=== PATIENT | male | born 1965 | race Hispanic/Latino ===

== ENCOUNTER 2017-10-15 13:30 | Emergency (ER) | payer OTHER, SELFPAY ==
[2017-10-15 13:58] LABS: #Basophils 0.1 thou/uL (0.0-0.2); #Eosinphils 0.3 thou/uL (0.0-0.7); #Lymphocytes 2.1 thou/uL (1.20-3.40); #Monocytes 0.6 thou/uL (0.11-0.59); #Neutrophils 9.5 thou/uL (1.40-6.50); %Basophils 0.4 % (0.0-1.0); %Eosinophils 2.6 % (0.0-10.0); %Lymphocytes 16.5 % (21.0-51.0); %Monocytes 4.9 % (0.0-10.0); %Neutrophils 75.5 % (42.0-75.0); Hemoglobin 17.5 g/dL (14.0-18.0); Mean Corpuscular HGB CONC 34.4 g/dL (32.0-36.0); Mean Corpuscular Hemoglobin 32.1 pg (27.0-31.0); Mean Corpuscular Volume 93.3 fl (80.0-94.0); Mean Platelet Volume 7.6 fL (7.4-10.4); Platelet Count 202 thou/uL (130-400); RBC Distribution Width 11.7 % (11.5-14.5); Red Blood Cell (RBC) Count 5.44 mill/uL (4.70-6.10); White Blood Cell (WBC) Count 12.5 thou/uL (4.8-10.8)
[2017-10-15 14:35] LABS: ALT (SGPT) 30 U/L (8-55); AST (SGOT) 39 U/L (5-34); Albumin 4.3 g/dL (3.5-5.0); Alkaline Phosphatase 127 U/L (40-150); Anion Gap 15 mmol/L (10-20); BUN (Urea Nitrogen) 15 mg/dL (8.4-25.7); CK (CPK) 64 U/L (30-200); Calc. Creatinine Clearance 0 mL/min (70-130); Calcium 9.9 mg/dL (7.8-10.44); Carbon Dioxide 26 mmol/L (22-29); Chloride 103 mmol/L (98-107); Estimated GFR-MDRD 65; Globulin 4.3 g/dL (2.4-3.5); Glucose 236 mg/dL (70-105); Potassium 3.9 mmol/L (3.5-5.1); Protein, Total 8.6 g/dL (6.0-8.3); Sodium 140 mmol/L (136-145)
[2017-10-15 14:39] LABS: Troponin I 0.011 ng/mL (< 0.028)
[2017-10-15] MEDS ORDERED: Nitroglycerin 0.4 MG TAB (25 Tab Bottle) ONE (14:40)
[2017-10-15 14:59] LABS: Magnesium 2.1 mg/dL (1.6-2.6)
--- NOTE | 2017-10-15 16:15 | RAD ---
SINGLE VIEW OF THE CHEST: 10/15/17 COMPARISON: 11/08/16 HISTORY: Epigastric pain and chest pain. FINDINGS: Single view of the chest shows a normal sized cardiomediastinal silhouette. There is no evidence of c onsolidation, mass, or pleural effusion. Degenerative changes are seen in the spine. IMPRESSION: No evidence of acute cardiopulmonary disease. POS: [facility]
[2017-10-15] MEDS ORDERED: Mag-Al 1200 mg/1200 mg/30 ML UDCUP ONE (16:29)
[2017-10-15] MEDS ORDERED: Lidocaine Viscous Sol 2% 15 ml UD Cup ONE (16:29)
--- NOTE | 2017-10-15 17:15 | ULT ---
RIGHT UPPER QUADRANT ULTRASOUND: History: Epigastric and right sided chest and arm pain. Abdominal pain since 8 this morning. Technique: Multiplanar grayscale and color doppler images were obtained in a right upper quadrant abd ominal ultrasound. FINDINGS: The liver demonstrates increased echogenicity without focal lesions or intrahepatic ductal dilatation . The gallbladder is normal without stones, sludge, gallbladder wall thickening, or pericholecystic f luid. The common bile duct is normal measuring 3 mm. The visualized portions of the pancreas are unremarkable. The right kidney is normal in echogenicity without hydronephrosis or calculus and measures 10.8 cm in length. IMPRESSION: Fatty liver. POS: [facility]
== END 2017-10-15 17:18 | disposition home or self-care (01) ==
LOC: ERS 13:30
DX: K21.9 Gastro-esophageal reflux disease without esophagitis (principal); I25.2 Old myocardial infarction; E11.9 Type 2 diabetes mellitus without complications; F17.210 Nicotine dependence, cigarettes, uncomplicated; I10 Essential (primary) hypertension
CPT/HCPCS: 36415; 71045; 76705; 80053; 82553; 83690; 83735; 84484; 85025; 93005

== ENCOUNTER 2018-12-23 07:31 | Emergency (ER) | payer SELFPAY ==
[2018-12-23] MEDS ORDERED: HYDROcodone/Acetaminophen 5/325 mg Tablet ONE (09:16)
[2018-12-23] MEDS ORDERED: Dexamethasone 4 mg/ml Vial ONE (09:17)
[2018-12-23] MEDS ORDERED: Ketorolac Tromethamine 30 MG/ML VIAL ONE (09:17)
== END 2018-12-23 09:35 | disposition home or self-care (01) ==
LOC: ERS 07:31
DX: M54.16 Radiculopathy, lumbar region (principal); I25.2 Old myocardial infarction; F17.210 Nicotine dependence, cigarettes, uncomplicated
CPT/HCPCS: 96372; 99283; J1100; J1885

== ENCOUNTER 2019-01-17 21:29 | Observation (INO) | payer SELFPAY ==
[2019-01-17] MEDS ORDERED: Labetalol HCl 100 MG/20 ML VIAL ONE (21:56)
[2019-01-17 22:04] LABS: #Basophils 0.1 thou/uL (0.0-0.2); #Eosinphils 0.6 thou/uL (0.0-0.7); #Monocytes 0.6 thou/uL (0.11-0.59); #Neutrophils 5.3 thou/uL (1.40-6.50); %Basophils 1.1 % (0.0-1.0); %Eosinophils 5.9 % (0.0-10.0); %Lymphocytes 31.3 % (21.0-51.0); %Neutrophils 55.6 % (42.0-75.0); Hemoglobin 16.6 g/dL (14.0-18.0); Mean Corpuscular HGB CONC 33.6 g/dL (32.0-36.0); Mean Corpuscular Hemoglobin 31.4 pg (27.0-31.0); Mean Corpuscular Volume 93.3 fL (78.0-98.0); Mean Platelet Volume 7.8 fL (7.4-10.4); Platelet Count 190 thou/uL (130-400); RBC Distribution Width 11.5 % (11.5-14.5); Red Blood Cell (RBC) Count 5.28 mill/uL (4.70-6.10); White Blood Cell (WBC) Count 9.5 thou/uL (4.8-10.8)
--- NOTE | 2019-01-17 22:15 | CT ---
CT Brain WO Con History: Dizziness and blurred vision Comparison: CT 2016 Findings: No acute hemorrhage or infarct. No midline shift or mass effect. Ventricular size and extra -axial CSF spaces are normal. Mild periventricular microangiopathic changes. Paranasal sinuses and mastoids are clear. Impression: No acute intracranial abnormality.
--- NOTE | 2019-01-17 22:16 | RAD ---
XR Chest 1 View Portable History: Dizziness and blurred vision Comparison: Radiograph 2018 Findings: Lungs are clear. No pneumothorax. No effusion. No acute osseous abnormality. Impression: No acute intrathoracic abnormality.
[2019-01-17] MEDS ORDERED: Aspirin Chewable 81 MG TAB ONE (22:22)
[2019-01-17 22:24] LABS: ALT (SGPT) 33 U/L (8-55); AST (SGOT) 30 U/L (5-34); Albumin 4.2 g/dL (3.5-5.0); Alkaline Phosphatase 108 U/L (40-150); Anion Gap 13 mmol/L (10-20); BUN (Urea Nitrogen) 15 mg/dL (8.4-25.7); Bilirubin, Total 0.8 mg/dL (0.2-1.2); Calc. Creatinine Clearance 0 mL/min (70-130); Calcium 9.4 mg/dL (7.8-10.44); Carbon Dioxide 24 mmol/L (22-29); Chloride 102 mmol/L (98-107); Estimated GFR-MDRD 76; Globulin 3.6 g/dL (2.4-3.5); Glucose 148 mg/dL (70-105); Potassium 3.3 mmol/L (3.5-5.1); Protein, Total 7.8 g/dL (6.0-8.3); Sodium 136 mmol/L (136-145)
[2019-01-17] MEDS ORDERED: Acetaminophen 325 MG TAB PO PRN (23:51)
[2019-01-17] MEDS ORDERED: Sodium Chloride 0.9% 1,000 ML IV SCH (23:51)
[2019-01-17] MEDS ORDERED: Ondansetron ODT 4 MG TAB SL PRN (23:51)
[2019-01-17] MEDS ORDERED: Ondansetron PF 4 MG/2 ML Vial IVP PRN (23:51)
[2019-01-18 05:05] LABS: Troponin I 0.035 ng/mL (< 0.028)
[2019-01-18] MEDS ORDERED: Sodium Chloride 0.9% 1,000 ML IV SCH (08:43)
[2019-01-18] MEDS ORDERED: Aspirin Chewable 81 MG TAB PO SCH (09:00)
[2019-01-18] MEDS ORDERED: Amlodipine 5 MG TAB PO SCH ×2 (09:00→18:00)
[2019-01-18] MEDS ORDERED: Dextrose 5% in Water 1,000 ML IV PRN (09:14)
[2019-01-18] MEDS ORDERED: HumaLOG 300 UNITS/3 ML VIAL SC PRN (09:14)
[2019-01-18] MEDS ORDERED: Dextrose 50% Abboject 50 ML SYRINGE SLOW IVP PRN (09:14)
[2019-01-18 09:18] LABS: #Eosinphils 0.5 thou/uL (0.0-0.7); #Lymphocytes 2.2 thou/uL (1.20-3.40); #Monocytes 0.6 thou/uL (0.11-0.59); #Neutrophils 4.7 thou/uL (1.40-6.50); %Basophils 0.3 % (0.0-1.0); %Eosinophils 6.6 % (0.0-10.0); %Lymphocytes 27.8 % (21.0-51.0); %Monocytes 6.9 % (0.0-10.0); %Neutrophils 58.4 % (42.0-75.0); Mean Corpuscular HGB CONC 34.2 g/dL (32.0-36.0); Mean Corpuscular Hemoglobin 32.1 pg (27.0-31.0); Mean Platelet Volume 8.1 fL (7.4-10.4); Platelet Count 172 thou/uL (130-400); RBC Distribution Width 11.6 % (11.5-14.5); Red Blood Cell (RBC) Count 4.98 mill/uL (4.70-6.10); White Blood Cell (WBC) Count 8.1 thou/uL (4.8-10.8)
[2019-01-18 09:34] LABS: ALT (SGPT) 30 U/L (8-55); AST (SGOT) 27 U/L (5-34); Albumin 3.8 g/dL (3.5-5.0); Alcohol Less than 10 mg/dL (Less than 10); Alkaline Phosphatase 96 U/L (40-150); Anion Gap 13 mmol/L (10-20); BUN (Urea Nitrogen) 16 mg/dL (8.4-25.7); Bilirubin, Total 1.3 mg/dL (0.2-1.2); Calc. Creatinine Clearance 92 mL/min (70-130); Calcium 9.2 mg/dL (7.8-10.44); Carbon Dioxide 26 mmol/L (22-29); Cardiac Risk 3.1 (Less than 4.5); Chloride 103 mmol/L (98-107); Cholesterol 145 mg/dl (< 200 Desired); Estimated GFR-MDRD Greater than 90; Globulin 3.5 g/dL (2.4-3.5); Glucose 170 mg/dL (70-105); HDL Cholesterol 47 mg/dL (>60 Neg Risk); LDL Cholesterol, Calculated 70 mg/dL; Magnesium 2.2 mg/dL (1.6-2.6); Potassium 3.6 mmol/L (3.5-5.1); Protein, Total 7.3 g/dL (6.0-8.3); Sodium 138 mmol/L (136-145); Triglycerides 138 mg/dL (Less than 150)
[2019-01-18] MEDS ORDERED: Ondansetron ODT 4 MG TAB PO PRN (09:34)
[2019-01-18] MEDS ORDERED: Acetaminophen 650 MG Suppository PR PRN (09:34)
[2019-01-18] MEDS ORDERED: Ondansetron PF 4 MG/2 ML Vial IVP PRN (09:34)
[2019-01-18] MEDS ORDERED: Senokot S 8.6-50 MG TAB PO PRN (09:34)
[2019-01-18] MEDS ORDERED: Acetaminophen 325 MG TAB PO PRN (09:34)
[2019-01-18 09:56] LABS: CKMB 1.4 ng/mL (0-6.6)
[2019-01-18] MEDS ORDERED: ADENOSINE 60 MG/20 ML VIAL ONE (13:54)
--- NOTE | 2019-01-18 15:11 | ULT ---
BILATERAL CAROTID DUPLEX ULTRASOUND WITH SPECTRAL ANALYSIS AND COLOR FLOW EVALUATION: HISTORY: Left upper extremity numbness and blurred vision. FINDINGS: Guan scale, color flow, Doppler evaluation, and spectral analysis of the bilateral carotid arteries i s performed with 2D imaging. There is mild calcified atherosclerotic plaque seen in the region of th e right carotid bulb. There is less than 50% maximal stenosis in the bilateral internal carotid arteries according to the p eak systolic velocities and the ICA/CCA ratios. Peak systolic velocity in the right ICA is 65 cm/s w ith an ICA/CCA ratio of 0.96. Peak systolic velocity in the left ICA is 46.5 cm/s with an ICA/CCA ra heather of 0.61. Antegrade flow is demonstrated in the vertebral arteries bilaterally. IMPRESSION: No hemodynamically significant stenosis in the bilateral internal carotid arteries. POS: [facility]
--- NOTE | 2019-01-18 15:17 | NM ---
EXAM: Nuclear medicine cardiac perfusion examination with ejection fraction HISTORY: Chest pain TECHNIQUE: Rest images: 9.0 mCi technetium 99m sestamibi Stress images: 27.5 mCi of technetium 9M sestamibi; Adenosine COMPARISON: None FINDINGS: Tomographic images: No fixed or reversible perfusion defects. Gated images: Normal wall motion and ejection fraction of 57%. EDV: 136 mL LHR: 0.3 TID: 1.16 IMPRESSION: No evidence of ischemia
[2019-01-18] MEDS ORDERED: hydrALAZINE 20 MG/ML VIAL SLOW IVP PRN (16:33)
[2019-01-18 16:41] LABS: Amphetamine Not Detected (NotDetected); Benzodiazepine Screen Not Detected (NotDetected); Cocaine Metabolite Screen Not Detected (NotDetected); Medtox Reader # READER 4; Methadone Not Detected (NotDetected); Methamphetamine Not Detected (NotDetected); Opiate Screen Not Detected (NotDetected); Phencyclidine (PCP) Not Detected (NotDetected); THC/Cannabinoid Screen Not Detected (NotDetected); Tricyclic Screen Not Detected (NotDetected)
[2019-01-18 16:42] LABS: Barbiturates Screen Not Detected (NotDetected); Medtox Control Line Valid? VALID (VALID); Oxycodone Screen Not Detected (NotDetected)
[2019-01-18] MEDS: HumaLOG 300 UNITS/3 ML VIAL SC PRN (17:04)
[2019-01-18] MEDS ORDERED: Labetalol HCl 100 MG/20 ML VIAL SLOW IVP PRN (17:57)
[2019-01-18] MEDS ORDERED: Famotidine/PF 20 mg/2ml Vial SLOW IVP SCH (21:00)
[2019-01-18] MEDS: Metoprolol Tartrate 25 MG TAB PO SCH (21:23)
[2019-01-18] MEDS ORDERED: Famotidine 20 MG TAB PO SCH (21:30)
--- NOTE | 2019-01-18 22:19 | PDOC.EVN ---
Event Note - Event Note Event Note: Dictated H&P 01/18/2019 at 9am- #[id number]
[2019-01-19 05:20] LABS: #Basophils 0.1 thou/uL (0.0-0.2); #Eosinphils 0.5 thou/uL (0.0-0.7); #Lymphocytes 2.7 thou/uL (1.20-3.40); #Monocytes 0.7 thou/uL (0.11-0.59); #Neutrophils 4.9 thou/uL (1.40-6.50); %Basophils 0.6 % (0.0-1.0); %Eosinophils 5.2 % (0.0-10.0); %Lymphocytes 30.8 % (21.0-51.0); %Monocytes 7.7 % (0.0-10.0); %Neutrophils 55.7 % (42.0-75.0); Hemoglobin 15.6 g/dL (14.0-18.0); Mean Corpuscular HGB CONC 33.4 g/dL (32.0-36.0); Mean Corpuscular Hemoglobin 31.6 pg (27.0-31.0); Mean Corpuscular Volume 94.7 fL (78.0-98.0); Mean Platelet Volume 8.5 fL (7.4-10.4); Platelet Count 181 thou/uL (130-400); RBC Distribution Width 11.6 % (11.5-14.5); Red Blood Cell (RBC) Count 4.94 mill/uL (4.70-6.10); White Blood Cell (WBC) Count 8.8 thou/uL (4.8-10.8)
[2019-01-19 05:37] LABS: Anion Gap 11 mmol/L (10-20); BUN (Urea Nitrogen) 18 mg/dL (8.4-25.7); Calc. Creatinine Clearance 87 mL/min (70-130); Calcium 9.1 mg/dL (7.8-10.44); Carbon Dioxide 26 mmol/L (22-29); Chloride 103 mmol/L (98-107); Estimated GFR-MDRD 84; Glucose 163 mg/dL (70-105); Potassium 3.5 mmol/L (3.5-5.1); Sodium 136 mmol/L (136-145)
[2019-01-19] MEDS: HumaLOG 300 UNITS/3 ML VIAL SC PRN (06:03)
--- NOTE | 2019-01-19 07:50 | HP ---
PRIMARY CARE PHYSICIAN: None. CHIEF COMPLAINT: Weakness and lightheaded. HISTORY OF PRESENT ILLNESS: Mr. Shields is a 53-year-old man with a history of hypertension and noncompliance with medications, who presents due to complaints of feeling generally unwell yesterday evening with weakness in both legs, lightheadedness, and blurred vision. The patient states upon arriving to the emergency department, he experienced a brief episode of central chest pain lasting a couple of seconds, which he rates a 4/10 in severity, described as a sharp pain. He reports having a current episode of similar pain about 1 hour later. He states he currently feels pressure in his head, but when asked about the headaches, he says he does not experience headaches. The patient was a very poor historian, giving conflicting information, often looking to his family member before answering questions, and states he is forgetful and has poor memory. He states his main concern is the chest pain that occurred while he was in the emergency department. He denies experiencing pain like that in the past. Denies any associated shortness of breath. The patient states he ran out of his blood pressure medications approximately 1 month ago. He was unsure when and states it was prescribed by a physician he saw while admitted to the hospital. He does not recall the name of the medication and states he has never followed up with a primary care physician. He does not check his blood pressure at home and is unsure what his blood pressure normally is. He had frequent issues with blurred vision [place]. He then stated that he had double vision at the moment and when asked when it started, he stated that it has been going on for quite some time. It does sound like it was intermittent, but the patient unable to stay who often it occurs, if multiple times daily or several times a week or exactly comply often. He denies experiencing any blurred vision. Again, denies any headache, but continues to describe pressure in his head, which he rates as a 2/10 in severity. He is unable to state, if this is daily, though initially, he stated it was constant. He denies taking anything for it because he states it is not "pain." He denies having any shortness of breath. He works [employer] and apparently started working there a week before. Denies having any recent cough or hemoptysis. No fevers, chills, or sweats. Denies any abdominal pain or cramping. No urinary complaints and no bowel changes. He admits to smoking when he drinks. When asked how often he drinks, he stated rarely. However, upon further questioning, when asked when the last time he drank was, he stated yesterday and admitted to drinking on Saturday and as well. His daughter then confirmed he does tend to drink 3 to 4 days a week. This ranges anywhere between two 12-ounce cans of beer to six-pack. The patient unable to state exactly how much he drinks. He did confirm once again that he does smoke when he drinks, but unable to state the quantity. He denied any drug use. In the emergency department, he reported having a history of diabetes and VT in the past; however, has denied both of these today. He was seen in the emergency department and noted to have a blood pressure of 194/100. He was given a dose of labetalol 20 mg. Also, given aspirin 324 mg. He underwent a CT of the head due to the blurred vision, which was negative. He had a chest x-ray that was unremarkable. An EKG was done showing nonspecific ST changes with a heart rate of 71. No T-wave abnormalities. He had findings notable for left ventricular hypertrophy. The patient later reported having weakness and altered sensation in his left arm, which has been going on for the last year and stable. Denies having history of CVA or TIA. He states he never sought medical attention when it started. Denies any associated back pain. PAST MEDICAL HISTORY: 1. Hypertension. 2. Arthritis. 3. Per previous documentation last night and couple of years ago, he was diagnosed with diabetes mellitus type 2 in his early 40s. The patient does not take any medications for this. 4. Dyslipidemia. PAST SURGICAL HISTORY: Unremarkable. SOCIAL HISTORY: He drinks alcohol daily anywhere from two 12-ounce cans of beer to six pack per day, at least three days a week, but did drink more heavily in the past. Denies any illicit drug use, but per prior documentation, has a history of cocaine abuse in the past. The patient reports smoking when he drinks, but unable to state the quantity. ALLERGIES: NO KNOWN DRUG ALLERGIES. CURRENT MEDICATIONS: 1. [place]. 2. Prednisone. PHYSICAL EXAMINATION: GENERAL: The patient appears overweight, well developed, well nourished, in no acute distress. VITAL SIGNS: Temperature 97.6, pulse 60, respirations 14, O2 saturation 97% on room air, and blood pressure 180/101. HEENT: Normocephalic and atraumatic. Pupils are equal, round, and reactive to light. Extraocular movements intact. Visual cho intact. Oropharynx is clear. NECK: Supple. Full range of motion. LUNGS: Clear to auscultation bilaterally without wheezes, rales, rhonchi. CARDIAC: Regular rate and rhythm. ABDOMEN: Soft, obese, nontender, nondistended. Normoactive bowel sounds present. EXTREMITIES: No lower leg swelling or edema. NEUROLOGIC: Alert and oriented x3. No neuro deficits. Reports reduced sensation in the left upper extremity; however, has good strength bilaterally. SKIN: Normal warm and dry. INVESTIGATIONS: As mentioned above in HPI. IMPRESSION AND PLAN: Mr. Shields is a 53-year-old gentleman who has been referred for management of the followin. Acute coronary syndrome rule out. He has had no recurrent chest pain. Troponins have been trended. The first two were negative and the second is indeterminate at 0.035. I will add fourth troponins. Stress test requested. The patient with changes of LVH on EKG. We will obtain an echo as he has never had one. 2. Light headedness. The patient is status post CT of the brain that was negative. He has mild left upper extremity deficits, which he describes as weakness and altered sensation. Good strength bilaterally on exam with very minimal difference between the left and right arm. The patient never sought medical attention for this. Reports having issues with his memory. Not a very reliable historian. We will obtain carotid Dopplers. We will discuss further recommendations with . I presume given the fact that he has had long-standing problems including his vision, he would not meet any criteria for further inpatient workup as he does not have any acute symptoms. 3. Uncontrolled hypertension. The patient with history of noncompliance. Lost his medications and never established care with a primary care physician. We will start him on 5 mg of amlodipine. 4. Diabetes mellitus. The patient denies being diagnosed with diabetes in the past, but that has been documented on prior notes including the ER note last night. We will initiate sliding scale and initiate glucose monitoring. 5. Deep venous thrombosis prophylaxis. Mechanical SCDs. The patient is ambulatory. 6. Gastrointestinal prophylaxis. CODE STATUS: Full. His surrogate decision maker is , Char Shields. The patient's case was discussed with attending for further recommendations. Job ID: [id number]
[2019-01-19] MEDS: Metoprolol Tartrate 25 MG TAB PO SCH (08:54)
[2019-01-19] MEDS ORDERED: Amlodipine 5 MG TAB PO SCH (09:00)
[2019-01-19] MEDS ORDERED: Famotidine 20 MG TAB PO SCH (09:00)
[2019-01-19 12:13] VITALS: BP 150/81; TEMP 98.6
--- NOTE | 2019-01-19 14:44 | DIS ---
DATE OF ADMISSION: 01/17/2019 DATE OF DISCHARGE: 01/19/2019 [facility] Call admission for [place]. DISPOSITION: Discharged home. FINAL DIAGNOSES: 1. Hypertensive urgency. 2. Chest pain. 3. Diabetes mellitus type 2, uncontrolled. 4. Noncompliance with medical regimen. 5. Ethanol abuse. DISCHARGE MEDICATIONS: 1. Metoprolol 12.5 mg p.o. b.i.d. 2. Amlodipine 5 mg a day. ALLERGIES: NONE. DIET: Diabetic diet. CODE STATUS: Full. PENDING AT TIME OF DISCHARGE: Hemoglobin A1c is pending. HOSPITAL COURSE: The patient admitted with dizziness, chest pain. He was found to have significantly elevated blood pressure, treated initially with IV medicines, transitioned to p.o. medicines. His blood pressure is still ranging in the 148/81 to 162/82 range, pulse is 60. He has no chest pain, shortness of breath, or dizziness at the present time. He had a brain CT which revealed no acute intracranial abnormality. Chest x-ray demonstrated no cardiomegaly, CHF, or infiltrate. He had a nuclear medicine stress test that showed no reversibility. He had an echocardiogram, showed normal EF. A carotid Doppler study did show stenosis of his internal carotid arteries. His laboratory; metabolic profile is unremarkable except for a blood sugar of 148. Cardiac enzymes 0.01, 0.02, 0.03. BNP 68.8. CBC normal. Currently, he is doing well. Cardiorespiratory exam is normal. We were attempting to get him a PCP. He needs to be seen in 1 week for followup of his blood pressure and to start treatment for his diabetes. His blood sugars are currently running 100 to 200. Hemoglobin A1c is pending and that will make a difference on how he is treated, but he has been told to stay on a diabetic diet. Job ID: [id number]
--- NOTE | 2019-01-24 12:46 | EKG ---
Test Reason : CP Blood Pressure : / mmHG Vent. Rate : 071 BPM Atrial Rate : 071 BPM P-R Int : 166 ms QRS Dur : 090 ms QT Int : 424 ms P-R-T Axes : 047 008 066 degrees QTc Int : 460 ms Normal sinus rhythm Voltage criteria for left ventricular hypertrophy Nonspecific ST abnormality Abnormal ECG Confirmed by KADEEM SALCEDO, NIRANJAN ([id number]), development editor PAMELA WU ([id number]) on 01/24/2019 12:45:59 PM Referred By: Confirmed By:NIRANJAN QUAN MD
== END 2019-01-19 13:31 | disposition home or self-care (01) ==
LOC: ERS 21:29 → 2SW 22:53
PROVIDERS: ADMIT Hospitalist; ATTEND Hospitalist
DX: I16.0 Hypertensive urgency (principal); R07.89 Other chest pain; E11.9 Type 2 diabetes mellitus without complications; F10.10 Alcohol abuse, uncomplicated; M19.90 Unspecified osteoarthritis, unspecified site; E78.5 Hyperlipidemia, unspecified; I25.2 Old myocardial infarction; F14.10 Cocaine abuse, uncomplicated; F12.10 Cannabis abuse, uncomplicated; F17.210 Nicotine dependence, cigarettes, uncomplicated; Z91.19 Patient's noncompliance with other medical treatment and regimen
CPT/HCPCS: 36415; 36416; 70450; 71045; 78452; 80048; 80053; 80061; 80306; 80307; 82533; 82553; 83735; 83880; 84443; 84484; 85025; 93005; 93017; 93306; 93880; 94760; 96374; 96375; 96376; A9500; G0378; J0153; J0360; S0028

== ENCOUNTER 2019-03-30 19:25 | Observation (INO) | payer SELFPAY ==
[2019-03-30] MEDS ORDERED: Nitroglycerin 0.4 MG TAB 1 EACH ONE (19:55)
[2019-03-30] MEDS ORDERED: Nitroglycerin 2% Ointment 1 INCH/1 GM Packet ONE (19:55)
[2019-03-30] MEDS ORDERED: Aspirin Chewable 81 MG TAB ONE (19:55)
[2019-03-30 20:05] LABS: #Eosinphils 0.7 thou/uL (0.0-0.7); #Lymphocytes 2.7 thou/uL (1.20-3.40); #Monocytes 0.6 thou/uL (0.11-0.59); %Basophils 0.5 % (0.0-1.0); %Eosinophils 7.7 % (0.0-10.0); %Lymphocytes 30.2 % (21.0-51.0); %Monocytes 6.4 % (0.0-10.0); %Neutrophils 55.3 % (42.0-75.0); Hemoglobin 16.6 g/dL (14.0-18.0); Mean Corpuscular HGB CONC 34.7 g/dL (32.0-36.0); Mean Corpuscular Hemoglobin 32.8 pg (27.0-31.0); Mean Corpuscular Volume 94.4 fL (78.0-98.0); Mean Platelet Volume 7.9 fL (7.4-10.4); Platelet Count 196 thou/uL (130-400); RBC Distribution Width 11.6 % (11.5-14.5); Red Blood Cell (RBC) Count 5.08 mill/uL (4.70-6.10); White Blood Cell (WBC) Count 9.1 thou/uL (4.8-10.8)
[2019-03-30 20:26] LABS: ALT (SGPT) 18 U/L (8-55); AST (SGOT) 20 U/L (5-34); Albumin 4.2 g/dL (3.5-5.0); Alkaline Phosphatase 122 U/L (40-110); Anion Gap 12 mmol/L (10-20); BUN (Urea Nitrogen) 16 mg/dL (8.4-25.7); Bilirubin, Total 0.5 mg/dL (0.2-1.2); CK (CPK) 106 U/L (30-200); Calc. Creatinine Clearance 0 mL/min (70-130); Calcium 9.2 mg/dL (7.8-10.44); Carbon Dioxide 25 mmol/L (22-29); Chloride 106 mmol/L (98-107); Estimated GFR-MDRD 63; Globulin 3.7 g/dL (2.4-3.5); Glucose 210 mg/dL (70-105); Potassium 3.5 mmol/L (3.5-5.1); Protein, Total 7.9 g/dL (6.0-8.3); Sodium 139 mmol/L (136-145)
--- NOTE | 2019-03-30 20:47 | RAD ---
EXAM: CHEST ONE VIEW HISTORY: Sharp shooting pain in left arm. Dizziness. Elevated blood pressure. COMPARISON: 01/17/2019 FINDINGS: The cardiac silhouette and pulmonary vasculature is within normal limits. The lungs are clear. Degene rative changes are seen in the spine. Chest is stable compared to the prior exam. IMPRESSION: No acute cardiopulmonary process.
[2019-03-30] MEDS ORDERED: Acetaminophen 325 MG TAB PO PRN (21:48)
[2019-03-30] MEDS ORDERED: Senokot S 8.6-50 MG TAB PO PRN (21:48)
[2019-03-30] MEDS ORDERED: Dextrose 5% in Water 1,000 ML IV PRN (21:49)
[2019-03-30] MEDS ORDERED: Dextrose 50% Abboject 50 ML SYRINGE SLOW IVP PRN (21:49)
[2019-03-30] MEDS ORDERED: HumaLOG 300 UNITS/3 ML VIAL SC PRN (21:49)
[2019-03-30 22:57] VITALS: BMI 27.1
[2019-03-30 23:35] LABS: Troponin I Less than 0.010 ng/mL (< 0.028)
[2019-03-31] MEDS ORDERED: hydrALAZINE 20 MG/ML VIAL SLOW IVP PRN (00:10)
[2019-03-31] MEDS ORDERED: cloNIDine 0.1 MG TAB PO PRN (00:50)
[2019-03-31] MEDS ORDERED: Amlodipine 10 MG TAB PO SCH ×2 (00:50→09:00)
[2019-03-31] MEDS ORDERED: Lisinopril 20 MG TAB PO SCH ×2 (01:00→09:00)
[2019-03-31 02:35] LABS: #Basophils 0.1 thou/uL (0.0-0.2); #Eosinphils 0.9 thou/uL (0.0-0.7); #Lymphocytes 3.5 thou/uL (1.20-3.40); #Monocytes 0.7 thou/uL (0.11-0.59); #Neutrophils 4.9 thou/uL (1.40-6.50); %Basophils 0.8 % (0.0-1.0); %Eosinophils 9.1 % (0.0-10.0); %Lymphocytes 34.6 % (21.0-51.0); %Monocytes 6.5 % (0.0-10.0); %Neutrophils 48.9 % (42.0-75.0); Hemoglobin 16.9 g/dL (14.0-18.0); Mean Corpuscular HGB CONC 35.5 g/dL (32.0-36.0); Mean Corpuscular Hemoglobin 33.6 pg (27.0-31.0); Mean Corpuscular Volume 94.5 fL (78.0-98.0); Mean Platelet Volume 7.9 fL (7.4-10.4); Platelet Count 180 thou/uL (130-400); RBC Distribution Width 11.5 % (11.5-14.5); Red Blood Cell (RBC) Count 5.03 mill/uL (4.70-6.10)
[2019-03-31 02:46] LABS: Hemoglobin A1c 6.3 % (4.0-6.0)
[2019-03-31 02:57] LABS: Anion Gap 14 mmol/L (10-20); BUN (Urea Nitrogen) 15 mg/dL (8.4-25.7); Calc. Creatinine Clearance 86 mL/min (70-130); Calcium 9.3 mg/dL (7.8-10.44); Carbon Dioxide 25 mmol/L (22-29); Chloride 105 mmol/L (98-107); Estimated GFR-MDRD 72; Glucose 158 mg/dL (70-105); Potassium 3.4 mmol/L (3.5-5.1); Sodium 141 mmol/L (136-145); Troponin I Less than 0.010 ng/mL (< 0.028)
--- NOTE | 2019-03-31 06:30 | HP ---
CHIEF COMPLAINT: Left arm pain. HISTORY OF PRESENT ILLNESS: The patient is a 54-year-old male with a history of hypertension, who presented to the hospital with complaints of left arm pain and left shoulder pain. The patient stated that he had breakfast with his and then started having some pain. At this time, his blood pressure was checked. His blood pressure was severely elevated. He took his blood pressure medication and then went about his day. The patient then stated that later on, he started feeling unwell and at that time, he re-checked his blood pressure and his blood pressure was in the 200s systolic. His shoulder was still hurting, so he came into the hospital. The patient in the hospital was known to have a blood pressure as high in the systolic 200s. He states that he is compliant with his medications; however, I am not sure how true that is. PAST MEDICAL HISTORY: 1. History of hypertension. 2. AL. 3. Questionable diabetes. PAST SURGICAL HISTORY: He has had no surgical history. SOCIAL HISTORY: He drinks socially. Denies any current drug use, however, he is a former drug user. The patient currently uses tobacco, smoking cigarettes at sometimes. He lives with his girlfriend or and he is a full code. FAMILY HISTORY: History of coronary artery disease, mother and father both. ALLERGIES: NO KNOWN DRUG ALLERGIES. MEDICATIONS: He takes, 1. Metoprolol 25 mg daily. 2. Amlodipine 5 mg daily. 3. Prednisone, this was because he had pain. He has tendinitis according to the patient and also has sciatica and at times, ibuprofen and aspirin. PHYSICAL EXAMINATION: VITAL SIGNS: Temperature 98.8, oxygen saturations 99%, respirations 16, pulse 77, initial blood pressure was 206/88. GENERAL: He is awake, alert, and oriented x3. Does not appear in any distress. HEENT: Normocephalic, atraumatic. No lymphadenopathy noted. CV: S1, S2 present. No murmurs, rubs, or gallops. LUNGS: Clear to auscultation. No rhonchi or wheezes noted. ABDOMEN: Soft, nontender. Bowel sounds are present x2. EXTREMITIES: No edema. Pedal pulses are present x2. NEUROLOGIC: Neurovascular grimes, no deficits noted. EXTREMITIES: The patient does have pain on his left elbow upon palpation, but there is no erythema that is noted. SKIN: No cuts, lesions, or bruises noted. LABORATORY RESULTS: As of the following; WBCs of 10.0, hemoglobin of 16.9, hematocrit of 47.5, his platelets are 180. Chemistry; sodium of 141, potassium of 3.4, BUN of 15, creatinine of 1.07. Troponins x2 are negative. His chest x-ray that was done did not indicate any acute abnormalities. ASSESSMENT AND PLAN: The patient is a very pleasant 54-year-old male, who presents to the hospital with elevated blood pressure. 1. Hypertensive urgency. The patient's blood pressure was in the 200s systolic. He was given a significant amount of IV medications in the ER and he was admitted into the hospital for further evaluation. Upon reviewing his patient's chart, he recently about a couple of months ago had a Cardiolite stress test, which was essentially normal and he also had an echocardiogram, which was indicated diastolic dysfunction and EF of 60% to 65%. I have emphasized on this patient dramatically in regard to his blood pressure control and his adherence to diet and his medications. The patient understands. 2. Diabetes. We will check a hemoglobin A1c. He stated that he was a diabetic; however, I am not sure if he really is. If he does, he needs to be on metformin based on his hemoglobin A1c. 3. He did complain of some tingling to his both hands, especially the left one and states that he at times gets his tendinitis and he has steroid shots in on his left elbow in the past; however, nothing recently. Put him on some anti-inflammatories or pain medications. 4. Deep venous thrombosis prophylaxis. We will put the patient on enoxaparin. Job ID: [id number]
[2019-03-31] MEDS ORDERED: Metoprolol Tartrate 25 MG TAB PO SCH (09:00)
[2019-03-31] MEDS ORDERED: Potassium Chloride 20 MEQ TAB PO SCH (09:00)
[2019-03-31] MEDS ORDERED: Enoxaparin Sodium 40 MG/0.4 ML SYRINGE SC SCH (09:00)
[2019-03-31 13:08] VITALS: BP 164/89; TEMP 97.9
--- NOTE | 2019-03-31 22:21 | DIS ---
DATE OF ADMISSION: 03/30/2019 DATE OF DISCHARGE: 03/31/2019 PRIMARY CARE PROVIDER: Unknown. DISCHARGE DIAGNOSES: 1. Hypertensive urgency. 2. Hypokalemia. DISCHARGE MEDICATIONS: 1. Amlodipine 10 mg daily. 2. Lisinopril 20 mg daily. 3. Lopressor 12.5 mg 2 times a day. HOSPITAL COURSE: Mr. Shields is a pleasant 54-year-old gentleman, who was admitted to [facility] on March 31, 2019, for hypertensive urgency. Please refer to Dr. Nava's history and physical note dated March 31, 2019, for further details. The patient improved with antihypertensives. He is being discharged home in a stable condition. He has been advised to check his blood pressure and heart rate 3 times a day and show the readings to his primary care provider. He is also advised to have his creatinine and electrolytes checked in 5-7 days time through his primary care provider's office. FOLLOWUP APPOINTMENTS: The patient is advised to follow up with primary care provider in 3 days time. Many thanks for allowing me to participate in your patient's care. Please feel free to contact me with any questions or concerns. DISCHARGE DESTINATION: Home. Job ID: [id number]
== END 2019-03-31 16:05 | disposition home or self-care (01) ==
LOC: ERS 19:25 → 2NO 21:00 → INTOOBSV 21:00
PROVIDERS: ADMIT Family Medicine; ATTEND Family Medicine
DX: I16.0 Hypertensive urgency (principal); I10 Essential (primary) hypertension; M79.602 Pain in left arm; M25.512 Pain in left shoulder; I25.2 Old myocardial infarction; F17.210 Nicotine dependence, cigarettes, uncomplicated; E87.6 Hypokalemia; F12.11 Cannabis abuse, in remission; F14.11 Cocaine abuse, in remission; Z79.899 Other long term (current) drug therapy
CPT/HCPCS: 36415; 36416; 71045; 80048; 80053; 82550; 83036; 84484; 85025; 90471; 90732; 93005; G0009; G0378; J0360; J1650

== ENCOUNTER 2019-07-15 10:43 | Emergency (ER) | payer SELFPAY ==
[2019-07-15] MEDS ORDERED: Ketorolac Tromethamine 30 MG/ML VIAL ONE (12:33)
== END 2019-07-15 13:07 | disposition home or self-care (01) ==
LOC: ERS 10:43
DX: S39.012A Strain of muscle, fascia and tendon of lower back, initial encounter (principal); I25.2 Old myocardial infarction; I10 Essential (primary) hypertension; E11.9 Type 2 diabetes mellitus without complications; F32.9 Major depressive disorder, single episode, unspecified; F17.210 Nicotine dependence, cigarettes, uncomplicated; Z79.82 Long term (current) use of aspirin; Z79.899 Other long term (current) drug therapy; Z91.14 Patient's other noncompliance with medication regimen; X58.XXXA Exposure to other specified factors, initial encounter; Y99.0 Civilian activity done for income or pay
CPT/HCPCS: 96372; 99283; J1885

== ENCOUNTER 2019-08-24 23:22 | Inpatient (IN) | payer SELFPAY ==
--- NOTE | 2019-08-24 23:50 | RAD ---
PORTABLE CHEST: History: Difficulty breathing. Comparison: 03-30-19 FINDINGS: Lungs appear clear of infiltrate. Heart and mediastinum unremarkable. No effusion. IMPRESSION: No acute findings. POS: [facility]
[2019-08-25] LABS: #Basophils 0.1 thou/uL (0.0-0.2); #Eosinphils 0.3 thou/uL (0.0-0.7); #Lymphocytes 3.1 thou/uL (1.20-3.40); #Monocytes 0.5 thou/uL (0.11-0.59); #Neutrophils 5.1 thou/uL (1.40-6.50); %Basophils 1.1 % (0.0-1.0); %Eosinophils 3.7 % (0.0-10.0); %Lymphocytes 33.6 % (21.0-51.0); %Monocytes 5.3 % (0.0-10.0); %Neutrophils 56.4 % (42.0-75.0); Hemoglobin 16.4 g/dL (14.0-18.0); Mean Corpuscular HGB CONC 35.4 g/dL (32.0-36.0); Mean Corpuscular Hemoglobin 33.1 pg (27.0-31.0); Mean Corpuscular Volume 93.5 fL (78.0-98.0); Mean Platelet Volume 8.4 fL (7.4-10.4); Platelet Count 189 thou/uL (130-400); RBC Distribution Width 11.7 % (11.5-14.5); Red Blood Cell (RBC) Count 4.97 mill/uL (4.70-6.10); White Blood Cell (WBC) Count 9.1 thou/uL (4.8-10.8)
[2019-08-25] MEDS ORDERED: Ondansetron PF 4 MG/2 ML Vial ONE (00:11)
[2019-08-25] MEDS ORDERED: Labetalol HCl 100 MG/20 ML VIAL ONE (00:11)
[2019-08-25] MEDS ORDERED: Morphine 4 MG/ML VIAL ONE (00:11)
[2019-08-25 00:15] LABS: ALT (SGPT) 14 U/L (8-55); AST (SGOT) 20 U/L (5-34); Albumin 4.2 g/dL (3.5-5.0); Alcohol 22 mg/dL (Less than 10); Alkaline Phosphatase 87 U/L (40-110); Anion Gap 16 mmol/L (10-20); BUN (Urea Nitrogen) 14 mg/dL (8.4-25.7); Bilirubin, Total 0.7 mg/dL (0.2-1.2); Calc. Creatinine Clearance 0 mL/min (70-130); Calcium 9.4 mg/dL (7.8-10.44); Carbon Dioxide 22 mmol/L (22-29); Chloride 104 mmol/L (98-107); Estimated GFR-MDRD 75; Globulin 3.4 g/dL (2.4-3.5); Glucose 131 mg/dL (70-105); Potassium 3.3 mmol/L (3.5-5.1); Protein, Total 7.6 g/dL (6.0-8.3); Sodium 139 mmol/L (136-145)
[2019-08-25 00:53] LABS: Amphetamine Not Detected (NotDetected); Barbiturates Screen Not Detected (NotDetected); Benzodiazepine Screen Not Detected (NotDetected); Cocaine Metabolite Screen Not Detected (NotDetected); Medtox Control Line Valid? VALID (VALID); Medtox Reader # READER 4; Methadone Not Detected (NotDetected); Methamphetamine Not Detected (NotDetected); Opiate Screen Not Detected (NotDetected); Oxycodone Screen Not Detected (NotDetected); Phencyclidine (PCP) Not Detected (NotDetected); THC/Cannabinoid Screen Not Detected (NotDetected); Tricyclic Screen Not Detected (NotDetected)
--- NOTE | 2019-08-25 01:22 | CON ---
DATE OF CONSULTATION: Mr. Shields is a 54-year-old gentleman, who presents to the emergency department via EMS to [facility] after sudden onset of severe headache, nausea, and vomiting. Upon arrival here, CT scan of the brain reveals a left-sided basal ganglia hemorrhage measuring roughly 2 cm in greatest diameter. There is also casting of the left lateral ventricle with additional acute hemorrhage with some extension into the third ventricle and more significant extension into the fourth ventricle. There is no obvious sign of obstructive hydrocephalus at this time. The patient does have history of hypertension and did not take his medication today. Initial blood pressure in the field was 230 systolic. In the hospital after administration of antihypertensives in the field, the patient's presenting systolic pressures were in the 150s and at bedside upon my arrival at 167. The patient is alert and awake, oriented to situation, place, date, month, and year, understands why he is here and is able to provide me with his medical history and current course of illness. He states he was at home, when suddenly he started to have increasing headache and then this led to the nausea and vomiting, where his family then called EMS. Pupils are equal, round, and react to light. Extraocular movements are intact. Cornea are somewhat injected, particularly on the right. His bilateral upper extremity and lower extremity motor exam reveals normal 5/5 strength in all movements. He has some mild slurring of speech, which appears to be a chronic issue for him. He does not take any blood thinning medications. Denies Advil, aspirin, Plavix, or any other Coumadin or warfarin like medication. At this time, Neurosurgery's recommendation is one of nonsurgical management. The patient will be admitted to our colleagues in the hospitalist service. We would recommend keeping systolic pressures below 160. We will repeat a CT scan of the brain at 6 o'clock this morning, somewhat earlier than typical, particularly to better evaluate his ventricular size for possible concerns of obstructive hydrocephalus should this occur. We would rather be on that sooner than later. I did discuss with the patient and family at bedside that there is a chance that he may develop hydrocephalus and in that case, we would recommend emergently placing an external ventricular drain, but I stated the likelihood of this is relatively well but something to be aware of. The patient expressed understanding. He will need q.1 hour neuro checks in the ICU for the time being. We will plan to follow up in the morning. Benito ID: [id number]
[2019-08-25] MEDS ORDERED: Dextrose 5% in Water 1,000 ML IV PRN (02:20)
[2019-08-25] MEDS ORDERED: Ondansetron PF 4 MG/2 ML Vial IVP PRN (02:20)
[2019-08-25] MEDS ORDERED: Ondansetron ODT 4 MG TAB PO PRN (02:20)
[2019-08-25] MEDS ORDERED: niCARdipine 25 MG in Sodium Chloride 0.9% 250 ML 250 ML IVPB PRN (02:20)
[2019-08-25] MEDS ORDERED: HumaLOG 300 UNITS/3 ML VIAL SC PRN ×2 (02:20)
[2019-08-25] MEDS ORDERED: Dextrose 50% Abboject 50 ML SYRINGE SLOW IVP PRN (02:20)
[2019-08-25] MEDS ORDERED: HYDROcodone/Acetaminophen 5/325 mg Tablet PO PRN (02:20)
--- NOTE | 2019-08-25 02:31 | HP ---
PRIMARY CARE PHYSICIAN: The patient does not have a primary care physician. CHIEF COMPLAINT: "My head was hurting." HISTORY OF PRESENT ILLNESS: Mr. Shields is a pleasant 54-year-old gentleman, who has a history of hypertension and diabetes mellitus. He says that around 10:50 p.m. last night he started having pain in his head. When asked where it was located, he stated "all over." He also noted that the room was spinning, but he did not have any visual changes. He did not have any weakness in either arm or leg. He says that the pain was so severe and it was not going away. He rated about a 10/10 and it was pressure-like. He also says that when he went outside he was stumbling around and then vomited 5 times and fell to the ground. For this reason, he asked that his girlfriend bring him to the hospital. When he was seen in the ER, he was found to be hypertensive with a blood pressure of 199/98 and was also noted that his blood pressure went as high as [address] scan of the head was done which showed a bleed in the right basal ganglia and for this reason, he is being admitted to the hospital. The patient was given IV morphine as well as IV labetalol in the ER and Zofran and is being admitted to the ICU. It is reported that Neurosurgery was consulted from the ER and he was felt to be a nonsurgical candidate. The patient admits that he is hypertensive and has not had any blood pressure medicine in about 2 weeks and he has difficulty naming his medications. REVIEW OF SYSTEMS: All systems were reviewed and are negative except for that mentioned in the History of Present Illness. PAST MEDICAL HISTORY: Significant for hypertension for at least 20 years, coronary artery disease, diabetes mellitus. PAST SURGICAL HISTORY: Negative. ALLERGIES: NO KNOWN DRUG ALLERGIES. SOCIAL HISTORY: He is , but he does not live with his . He says that his has Alzheimer disease and lives with her daughter and he lives with a girlfriend. The patient has a son who lives in a different city. He admits to occasionally smoking a couple of cigarettes a day and then he also admits to drinking off and on. FAMILY HISTORY: Significant for diabetes and hypertension. MEDICATIONS: He is not sure of the names, but says that he believes lisinopril as one of them. PHYSICAL EXAMINATION: GENERAL: He is alert and oriented. He appears to be in no acute distress. He is well developed and well nourished. VITAL SIGNS: The most recent blood pressure was 153/109, heart rate of 72, respiratory rate of 18, temperature is 98.4. HEENT: His pupils are equal, round, and reactive to light. Extraocular muscles are intact. Sclerae anicteric. Throat; no erythema, no exudates. NECK: No adenopathy, no bruits. LUNGS: Clear to auscultation. No wheezing. No rales. No rhonchi. CARDIOVASCULAR: He has a normal S1 and S2. There is no S3 or S4. No murmurs, clicks, no rubs. ABDOMEN: Soft, nontender, and nondistended. Positive for bowel sounds. No rebound. No guarding. No organomegaly. EXTREMITIES: There is no clubbing or cyanosis. No edema. No calf tenderness. NEUROLOGIC: His cranial nerves 2 through 12 are intact. His muscle strength is 5/5 in both his upper and lower extremities. There is no drift. Reflexes are slightly hyporeflexive, but symmetric. SKIN AND INTEGUMENT: He does have some chronic venous stasis changes on his lower extremities and he does have significant hammertoe deformities. LABORATORY DATA: Sodium is 139, potassium 3.3, chloride is 104, CO2 is 22, BUN of 14, creatinine 1.04, glucose is 131. His white blood cell count is 9.1, hemoglobin 16.4, hematocrit is 46.4, and platelet count is 189. EKG is sinus rhythm. He did have some voltage criteria for LVH as well as some nonspecific ST-wave changes. This is by my reading. He had a CT scan of the brain which showed a left basal ganglia bleed. Also, this is by my reading. Chest x-ray says mild cardiomegaly. There was no evidence of any pulmonary edema and no pleural effusions by my reading. ASSESSMENT: 1. This is a 54-year-old gentleman, who comes in with hypertensive crisis and that he has developed an intracranial hemorrhage likely as a result of uncontrolled blood pressure. He will be admitted to the ICU. We will start him on a Cardene drip such that we can have better control of his blood pressure and have a goal of approximately 140-150 systolic. We will continue with the Neurosurgery consultation and neuro checks every 2 hours. In the a.m., we will need to reconcile his home medications and get these restarted and hopefully the Cardene drip can then be weaned off. 2. Diabetes mellitus. Once again, the patient is unclear about what medicines he takes for diabetes. I suspect it is an oral agent as his blood sugar is not very elevated and we can place him on a sliding scale for now. We will get a repeat CT scan in the a.m. and further recommendations to follow. Job ID: [id number]
[2019-08-25] MEDS: Acetaminophen 325 MG TAB PO PRN ×2 (02:50→10:59)
[2019-08-25] MEDS: Sodium Chloride 0.9% 1,000 ML IV SCH ×2 (02:50→16:27)
[2019-08-25 04:16] LABS: #Eosinphils 0.2 thou/uL (0.0-0.7); #Lymphocytes 2.1 thou/uL (1.20-3.40); #Monocytes 0.6 thou/uL (0.11-0.59); #Neutrophils 6.5 thou/uL (1.40-6.50); %Basophils 0.2 % (0.0-1.0); %Eosinophils 2.2 % (0.0-10.0); %Lymphocytes 22.1 % (21.0-51.0); %Monocytes 5.9 % (0.0-10.0); %Neutrophils 69.7 % (42.0-75.0); Hemoglobin 15.6 g/dL (14.0-18.0); Mean Corpuscular Volume 94.1 fL (78.0-98.0); Mean Platelet Volume 8.6 fL (7.4-10.4); Platelet Count 190 thou/uL (130-400); RBC Distribution Width 11.9 % (11.5-14.5); Red Blood Cell (RBC) Count 4.89 mill/uL (4.70-6.10); White Blood Cell (WBC) Count 9.4 thou/uL (4.8-10.8)
[2019-08-25 04:25] LABS: Anion Gap 14 mmol/L (10-20); BUN (Urea Nitrogen) 17 mg/dL (8.4-25.7); Calc. Creatinine Clearance 83 mL/min (70-130); Calcium 9.3 mg/dL (7.8-10.44); Carbon Dioxide 24 mmol/L (22-29); Chloride 104 mmol/L (98-107); Estimated GFR-MDRD 72; Glucose 164 mg/dL (70-105); Potassium 3.6 mmol/L (3.5-5.1); Sodium 138 mmol/L (136-145)
[2019-08-25 05:52] VITALS: BMI 26.3
--- NOTE | 2019-08-25 07:24 | CT ---
CT HEAD WITHOUT CONTRAST: Date: 08/24/2019 INDICATION: Headache. COMPARISON: Head CT of 01/17/19. FINDINGS: There is acute hematoma in the left basal ganglia with intraventricular extension. Hematoma measures approximately 2.0 cm AP dimension. Acute blood in the left lateral ventricle and in the third and fou rth ventricles. Mild chronic ischemic white matter change. No acute infarct. IMPRESSION: Acute intraparenchymal hematoma in the left basal ganglia with intraventricular extension. Findings relayed to Dr. Rain. CODE CR. POS: [facility]
--- NOTE | 2019-08-25 07:36 | CT ---
CT OF THE BRAIN WITHOUT CONTRAST: Date: 08/25/2019 COMPARISON: 08/25/2019 at 0000 hours. HISTORY: Intracranial hemorrhage. TECHNIQUE: Multiple contiguous axial images were obtained in a CT of the brain without contrast. FINDINGS: There is a left basal ganglia hemorrhage with extension into the left lateral ventricle. Blood is aga in seen in the bilateral lateral ventricles and in the third ventricle. This is stable in amount comp ared to the prior examination. There is no evidence of hydrocephalus. There are scattered hypodensiti es in the subcortical and periventricular white matter, likely secondary to small vessel ischemic dis ease. No large confluent infarction is seen. The calvarium and overlying soft tissues are unremarkable. The visualized paranasal sinuses and masto id air cells are well aerated. IMPRESSION: Stable basal ganglia and intraventricular hemorrhage. POS: C
[2019-08-25] MEDS ORDERED: Famotidine 20 MG TAB PO SCH (09:00)
[2019-08-25] MEDS ORDERED: Metoprolol Tartrate 25 MG TAB PO SCH ×2 (12:15→21:00)
[2019-08-25] MEDS ORDERED: Lisinopril 20 MG TAB PO SCH (12:15)
[2019-08-25] MEDS ORDERED: Amlodipine 10 MG TAB PO SCH (12:15)
[2019-08-25] MEDS ORDERED: Labetalol HCl 100 MG/20 ML VIAL SLOW IVP PRN (12:59)
--- NOTE | 2019-08-25 13:39 | CON ---
DATE OF CONSULTATION: 08/25/2019 SERVICE: Pulmonary Medicine. REASON FOR CONSULTATION: ICU patient. HISTORY OF PRESENT ILLNESS: The patient is a 54-year-old male with past medical history significant for hypertension and alcohol abuse. He is in his usual state of health and abrupt onset of neurologic changes. He presented to the emergency department and was discovered to be hypertensive. A CT of the head demonstrates a basal ganglia bleed. He has a very little deficit at this point. Otherwise, there has been no known change to his condition overnight. Repeat CT scan suggests that things are stable. He remained stable neurologically. He remains on a little bit of Cardene, but was just given his blood pressure medications by mouth. Hopefully, we will be able to get that and the nitroglycerin paste off him and transition into the floor. PAST MEDICAL HISTORY: 1. Hypertension. 2. Coronary artery disease. 3. Type 2 diabetes mellitus. 4. Alcohol abuse. PAST SURGICAL HISTORY: None. ALLERGIES: NO KNOWN DRUG ALLERGIES. MEDICATIONS: List of his inpatient medications was reviewed. I stopped the metoprolol and initiated Coreg. SOCIAL HISTORY: He currently lives with his in-laws. He does drink heavily. He smokes a quarter pack of cigarettes on a daily basis. He previously smoked quite a bit more and in total, has probably a [id number] history of smoking. He denies any street drugs. There is no exposure to chemicals, dust, asbestos, or tuberculosis. FAMILY HISTORY: Noncontributory. REVIEW OF SYSTEMS: General; head, ears, eyes, nose, throat; cardiovascular; respiratory; GI; ; musculoskeletal; neurologic; and skin are negative except as mentioned in the HPI. PHYSICAL EXAMINATION: VITAL SIGNS: Afebrile, pulse 83, blood pressure 151/115, respirations are 20, and saturation 100%, currently on room air. GENERAL: The patient is awake and alert, in no apparent distress. HEENT: Normocephalic and atraumatic. Sclerae white. Conjunctivae pink. Oral mucosa is moist without lesions. LUNGS: Good air entry bilaterally with no prolonged expiratory phase or wheezing present. HEART: Normal rate, regular. ABDOMEN: Soft, nontender, and nondistended. Bowel sounds are positive. MUSCULOSKELETAL: No cyanosis or clubbing. There is no pitting in the bilateral lower extremities. NEUROLOGIC: Left basal gangliar bleed with intraventricular extension. DIAGNOSTIC STUDIES: His chest x-ray demonstrates no acute cardiopulmonary abnormality. ASSESSMENT: 1. Intraparenchymal hemorrhage with intraventricular extension, stable. 2. Hypertensive emergency, resolving. 3. Alcohol abuse. DISCUSSION AND PLAN: At this point, the patient is stable for transition out of the ICU to the stroke unit. When he leaves the ICU, he will have no further requirements for inpatient Pulmonary or Critical Care opinion, and I will sign off. We will watch very closely for signs of neurologic deterioration. If we see that, stat CT of the head will be performed, and Neurosurgery will be notified. In the meantime, we will target his systolic blood pressure less than 140. Pulmonary/Critical Care will continue to follow closely. Job ID: [id number]
--- NOTE | 2019-08-25 13:49 | PRG ---
DATE OF SERVICE: 08/25/2019 I have reviewed the note as dictated by Rodrigo Anglin on Mr. Shields. Mr. Shields is a 54-year-old gentleman, who presented with a basal ganglia hemorrhage with intraventricular extension. He has had 2 CTs performed of the head, which shows stability overall. At this time, I have no concerns for ventriculomegaly. I do not foresee a need for neurosurgical intervention. It does remain conceivable that he could develop hydrocephalus, at which time we could be reconsulted for consideration of ventriculostomy. Job ID: [id number]
[2019-08-25] MEDS: Carvedilol 6.25 MG TAB PO SCH (16:30)
[2019-08-25] MEDS: hydrALAZINE 20 MG/ML VIAL SLOW IVP PRN (21:19)
[2019-08-26] MEDS: Carvedilol 6.25 MG TAB PO SCH ×2 (08:54→17:20)
[2019-08-26] MEDS: Amlodipine 10 MG TAB PO SCH (08:55)
[2019-08-26] MEDS: Lisinopril 20 MG TAB PO SCH (08:55)
--- NOTE | 2019-08-26 10:26 | PDOC.HOSPP ---
- Subjective Encounter Date: 08/26/19 Encounter Time: 10:20 Subjective: f/u for basal ganglia hemorrhage/CVA with residual ataxia. States feeling a little better overall. Tolerating po intake. BP improved. - Objective Vital Signs & Weight: Vital Signs (12 hours) Temp Pulse Resp BP BP Pulse Ox 08/26/19 08:55 69 139/73 08/26/19 08:54 139/73 08/26/19 07:19 98.7 F 98 14 139/73 98 08/26/19 04:54 98.8 F 69 18 137/74 97 08/25/19 23:41 98.7 F 80 14 125/64 98 Weight Weight 163 lb Most Recent Monitor Data Heart Rate from ECG 63 NIBP 144/88 NIBP BP-Mean 106 Respiration from ECG 16 SpO2 99 I&O: 08/25/19 08/26/19 08/27/19 06:59 06:59 06:59 Intake Total 324 2115 300 Output Total 0 1200 Balance 324 915 300 Result Diagrams: 08/25/19 03:34 08/25/19 03:34 Additional Labs: Accuchecks 08/26/19 08/25/19 08/25/19 06:05 20:39 16:05 POC Glucose 118 H 138 H 121 H 08/25/19 10:57 POC Glucose 139 H Radiology Reviewed by me: Yes (CT brain - basal ganglia hemorrhage/ intraventricular extension) EKG Reviewed by me: Yes (Tele - SR) Hospitalist ROS - Medication Medications: Active Medications Generic Name Dose Route Start Last Admin Trade Name Freq PRN Reason Stop Dose Admin Acetaminophen 650 mg 08/25/19 02:20 08/25/19 10:59 Tylenol PO 650 mg Q4H PRN Administration Headache/Fever/Mild Pain (1-3) Amlodipine Besylate 10 mg 08/26/19 09:00 08/26/19 08:55 Norvasc PO 10 mg DAILY PAPITO Administration Carvedilol 6.25 mg 08/25/19 17:00 08/26/19 08:54 Coreg PO 6.25 mg BID-WM PAPITO Administration Hydralazine HCl 20 mg 08/25/19 12:59 08/25/19 21:19 Apresoline SLOW IVP 20 mg Q15MIN PRN Administration Sbp Greater Than 140 Lisinopril 20 mg 08/26/19 09:00 08/26/19 08:55 Zestril PO 20 mg DAILY PAPITO Administration Sodium Chloride 10 ml 08/25/19 02:04 08/26/19 08:54 Flush - Normal Saline IVF 10 ml PRN PRN Administration Saline Flush - Exam General Appearance: NAD, awake alert Eye: PERRL, anicteric sclera ENT: normocephalic atraumatic, no oropharyngeal lesions Neck: supple, symmetric, no JVD, no thyromegaly, no lymphadenopathy Heart: RRR, no murmur, no gallops, no rubs, normal peripheral pulses Heart - other findings: S1, S2 Respiratory: CTAB, no wheezes, no rales, no ronchi, normal chest expansion Gastrointestinal: soft, non-tender, non-distended, normal bowel sounds, no palpable masses Extremities: no cyanosis, no clubbing, no edema Skin: normal turgor, no lesions Neurological: cranial nerve grossly intact, no new deficit Musculoskeletal: normal tone, normal strength, no muscle wasting Psychiatric: oriented to person, oriented to place Hosp A/P (1) Hemorrhagic cerebrovascular accident (CVA) Code(s): I61.9 - NONTRAUMATIC INTRACEREBRAL HEMORRHAGE, UNSPECIFIED Status: Acute Plan: Medical, conservative mgmt, general stroke protocol, BP control, no anticoagulation/ASA (2) Hypertensive urgency Code(s): I16.0 - HYPERTENSIVE URGENCY Status: Acute Plan: Resolving (3) DMII (diabetes mellitus, type 2) Status: Chronic Qualifiers: Diabetes mellitus complication status: without complication Qualified Code( s): E11.9 - Type 2 diabetes mellitus without complications Plan: Start Metformin 500mg BID, ISS, ADA (4) HTN (hypertension) Code(s): I10 - ESSENTIAL (PRIMARY) HYPERTENSION Status: Chronic Qualifiers: Hypertension type: essential hypertension Qualified Code(s): I10 - Essential (primary) hypertension Plan: Continue current BP regimen, serial BP monitoring - Plan PT/OT, clinical social work aide, out of bed/ambulate, DVT proph w/SCDs Stable currently Continue current BP regimen OOB/ambulate with PT No anticoagulation/ASA due to ICH AM lab: Lipid profile, A1C Likely home in 24h
[2019-08-26] MEDS: hydrALAZINE 20 MG/ML VIAL SLOW IVP PRN ×2 (13:04→23:20)
[2019-08-26] MEDS: Acetaminophen 325 MG TAB PO PRN (23:20)
[2019-08-27 05:21] LABS: Hemoglobin A1c 5.6 % (4.0-6.0)
[2019-08-27 05:28] LABS: Cardiac Risk 2.3 (Less than 4.5)
[2019-08-27] MEDS: Carvedilol 6.25 MG TAB PO SCH (08:41)
[2019-08-27] MEDS: Amlodipine 10 MG TAB PO SCH (08:42)
[2019-08-27] MEDS: Lisinopril 20 MG TAB PO SCH (08:42)
[2019-08-27 11:42] VITALS: TEMP 98.6
[2019-08-27 13:21] VITALS: BP 124/75
--- NOTE | 2019-08-28 09:52 | DIS ---
DATE OF ADMISSION: 08/25/2019 DATE OF DISCHARGE: 08/27/2019 DISCHARGE DIAGNOSES: 1. Hypertensive emergency. 2. Left basal ganglia hemorrhage with extension into the left lateral ventricle. 3. Diabetes. 4. Alcohol abuse. CONSULTATIONS: 1. Dr. Kwan Chu with Neurosurgery. 2. Dr. Lambert Washington with Critical Care. PROCEDURES: None. BRIEF HISTORY OF PRESENT ILLNESS: This is a 54-year-old male with past medical history of hypertension, diabetes in the past, who presented to the emergency room with severe headache. The patient states that he woke up from bed and experienced severe headache all over his head. His headache was so severe that he ended up going to the bathroom. When he got up to go outside, he proceeded to vomit. He was brought to the emergency room and was noted to have a blood pressure of 173/104. The patient underwent a CT scan of his head, which showed a left basal ganglia hemorrhage with extension into the left lateral ventricles. Neurosurgery was consulted on admission, and the patient was briefly admitted to the ICU. The patient states that he was noncompliant with his blood pressure medicine as an outpatient. HOSPITAL COURSE: Hypertensive emergency: The patient was initially admitted to the ICU and was started on a nicardipine drip. He was monitored in the ICU overnight and eventually was transferred to the floor. He had a repeat CT scan of his brain done on the , which showed a stable basal ganglia and intraventricular hemorrhage. The patient was eventually weaned off the nicardipine drip. He was resumed on his home lisinopril and amlodipine, and was switched to Coreg 6.25 mg p.o. b.i.d. His blood pressures remained well controlled in the 130s to 150s on the day of discharge. He will be discharged home with amlodipine, Coreg, and lisinopril, and his metoprolol was discontinued. He was advised to follow up with PCP to evaluate adequate control of his blood pressure in a week. Left basal ganglia hemorrhage: The patient was initially admitted to the ICU. He had a followup CT head the following day, which showed stable intraventricular hemorrhage. Neurosurgery felt that the patient does not need additional neurosurgical intervention. However, if the patient were to develop hydrocephalus, they could reconsult for consideration of a ventriculostomy. Prediabetes: The patient had a HbA1c checked which was 5.6. He does report a history of diabetes in the past and was taking medication for this, but does not remember which medications they were. He was advised to follow up with his PCP. His blood sugars were controlled in the hospitals ranging from 150s to 180s. DISCHARGE PHYSICAL EXAMINATION: VITAL SIGNS: Temperature 98.6, heart rate 62, respiratory rate 16, O2 saturation 98% on room air, blood pressure 144/72. GENERAL: The patient is alert, awake, oriented x3. NEUROLOGIC: Cranial nerves 2 through 12 are intact. He has 5/5 strength in his upper and lower extremities. The patient has diminished sensation from his left shoulder down to his left elbow. The patient states that this is secondary to chronic tendinitis, which he has had for a year. CVS: Regular rate and rhythm with no murmurs, rubs, or gallops. LUNGS: Clear to auscultation bilaterally. ABDOMEN: Positive bowel sounds, soft, nontender, nondistended. EXTREMITIES: No edema. PERTINENT LABORATORY DATA: CBC on 08/24: Unremarkable. BMP on 08/24: Unremarkable except for glucose of 164. HB A1c: 5.6. LFTs: AST 20, ALT 14, and alkaline phosphatase 87. Troponin I: 0.014. Lipid panel: Triglycerides 80, cholesterol 134, LDL 59, HDL 59, TSH 1.79. U-Tox: Undetectable. Plasma alcohol level :slightly elevated at 22. PERTINENT IMAGING: CT on 08/23: Acute intraparenchymal hematoma in the left basal ganglia with intraventricular extension. Chest x-ray on 08/23: No acute findings. CT brain on 08/24: Shows stable basal ganglia and intraventricular hemorrhage. DISCHARGE CONDITION: Stable. ACTIVITY: As tolerated. DIET: Heart healthy diet. Possible diabetic diet. DISCHARGE MEDICATIONS: NEW PRESCRIPTIONS: 1. Coreg 6.25 mg p.o. b.i.d. 2. Amlodipine 10 mg p.o. daily. 3. Lisinopril 20 mg p.o. daily. DISCONTINUED MEDICATIONS: Metoprolol. DISCHARGE INSTRUCTIONS: The patient to follow up with his PCP in a week for further monitoring of his blood pressure and diabetes. The patient does not know what medications he takes for his diabetes; however, his blood sugars were managed with sliding scale in the hospital and his A1c was only 5.6. I question whether the patient actually has diabetes or not. The patient should consider have a repeat CT scan in 4 to 6 weeks considered and follow up with neurosurgeon, Dr. Chu. He should also consider an MRI of his neck to further evaluate left arm numbness, which appears to be chronic. Job ID: [id number] [facility]
--- NOTE | 2019-08-29 13:14 | EKG ---
Test Reason : Blood Pressure : / mmHG Vent. Rate : 087 BPM Atrial Rate : 087 BPM P-R Int : 184 ms QRS Dur : 078 ms QT Int : 384 ms P-R-T Axes : 044 018 070 degrees QTc Int : 462 ms Normal sinus rhythm Minimal voltage criteria for LVH, may be normal variant Nonspecific ST and T wave abnormality Abnormal ECG Confirmed by JESU VALENTIN ([id number]), map editor SHAI BELTRÁN ([id number]) on 08/29/2019 1:14:09 PM Referred By: Confirmed By:JESU VALENTIN
== END 2019-08-27 15:59 | disposition home or self-care (01) | DRG 65 ==
LOC: ERS 23:22 → CCU 08-25 00:35 → 2SE 08-25 18:36
PROVIDERS: ADMIT Internal Medicine; ATTEND Internal Medicine
DX: I61.5 Nontraumatic intracerebral hemorrhage, intraventricular (principal); I16.1 Hypertensive emergency; I10 Essential (primary) hypertension; E11.9 Type 2 diabetes mellitus without complications; F10.10 Alcohol abuse, uncomplicated; R27.0 Ataxia, unspecified; I25.10 Atherosclerotic heart disease of native coronary artery without angina pectoris; R40.2362 Coma scale, best motor response, obeys commands, at arrival to emergency department; R40.2142 Coma scale, eyes open, spontaneous, at arrival to emergency department; R40.2252 Coma scale, best verbal response, oriented, at arrival to emergency department; I25.2 Old myocardial infarction; F32.9 Major depressive disorder, single episode, unspecified; F17.210 Nicotine dependence, cigarettes, uncomplicated; Z82.49 Family history of ischemic heart disease and other diseases of the circulatory system; F14.10 Cocaine abuse, uncomplicated; F12.10 Cannabis abuse, uncomplicated
CPT/HCPCS: 36415; 36416; 70450; 71045; 80048; 80053; 80061; 80306; 80307; 83036; 84484; 85025; 93005; 96374; 96375; J0360; J2270; J2405; J7050

== ENCOUNTER 2019-08-29 21:56 | Emergency (ER) | payer SELFPAY ==
[2019-08-29] MEDS ORDERED: HYDROcodone/Acetaminophen 10/325 mg Tablet ONE (22:19)
--- NOTE | 2019-08-29 22:41 | CT ---
EXAM: CT brain without contrast HISTORY: Worsening headache with history of intracranial hemorrhage COMPARISON: 08/25/2019 TECHNIQUE: Multiple contiguous axial images were obtained and a CT of the brain without contrast. FINDINGS: There is a hemorrhage involving the left basal ganglia which is slightly smaller in size co mpared to the prior examination. This extends into the left lateral ventricle. The amount of intraventricular hemorrhage has also decreased in size. The hemorrhage in the fourth ventricle has re solved. No hydrocephalus is seen. There are scattered hypodensities in the subcortical and periventricular white matter, likely secondary to small vessel ischemic disease. The calvarium and overlying soft tissues are unremarkable. The visualized paranasal sinuses and masto id air cells are well aerated. IMPRESSION: Improvement in left basal ganglia and intraventricular hemorrhage.
== END 2019-08-30 00:12 | disposition home or self-care (01) ==
LOC: ERS 21:56
DX: R51 Headache (principal); I25.2 Old myocardial infarction; E11.9 Type 2 diabetes mellitus without complications; Z86.73 Personal history of transient ischemic attack (TIA), and cerebral infarction without residual deficits; F32.9 Major depressive disorder, single episode, unspecified; F17.210 Nicotine dependence, cigarettes, uncomplicated; Z79.891 Long term (current) use of opiate analgesic; Z79.899 Other long term (current) drug therapy
CPT/HCPCS: 70450

== ENCOUNTER 2019-08-31 12:27 | Emergency (ER) | payer SELFPAY ==
[2019-08-31] MEDS ORDERED: Acetaminophen 500 MG TAB ONE (13:26)
[2019-08-31] MEDS ORDERED: Metoclopramide HCl 10 MG/2 ML VIAL ONE (13:27)
[2019-08-31] MEDS ORDERED: diphenhydrAMINE 50 MG/ML VIAL ONE (13:27)
[2019-08-31 13:32] LABS: #Eosinphils 0.1 thou/uL (0.0-0.7); #Lymphocytes 1.3 thou/uL (1.20-3.40); #Monocytes 0.6 thou/uL (0.11-0.59); #Neutrophils 8.6 thou/uL (1.40-6.50); %Basophils 0.2 % (0.0-1.0); %Eosinophils 0.7 % (0.0-10.0); %Lymphocytes 12.2 % (21.0-51.0); %Monocytes 5.5 % (0.0-10.0); %Neutrophils 81.4 % (42.0-75.0); Hemoglobin 16.6 g/dL (14.0-18.0); Mean Corpuscular HGB CONC 33.9 g/dL (32.0-36.0); Mean Corpuscular Hemoglobin 32.3 pg (27.0-31.0); Mean Corpuscular Volume 95.2 fL (78.0-98.0); Mean Platelet Volume 7.7 fL (7.4-10.4); Platelet Count 199 thou/uL (130-400); RBC Distribution Width 11.5 % (11.5-14.5); Red Blood Cell (RBC) Count 5.16 mill/uL (4.70-6.10); White Blood Cell (WBC) Count 10.6 thou/uL (4.8-10.8)
[2019-08-31 13:58] LABS: ALT (SGPT) 21 U/L (8-55); AST (SGOT) 18 U/L (5-34); Albumin 4.4 g/dL (3.5-5.0); Alkaline Phosphatase 74 U/L (40-110); Anion Gap 14 mmol/L (10-20); BUN (Urea Nitrogen) 21 mg/dL (8.4-25.7); Bilirubin, Total 2.1 mg/dL (0.2-1.2); Calc. Creatinine Clearance 0 mL/min (70-130); Calcium 9.5 mg/dL (7.8-10.44); Carbon Dioxide 22 mmol/L (22-29); Chloride 101 mmol/L (98-107); Estimated GFR-MDRD 82; Globulin 3.6 g/dL (2.4-3.5); Glucose 136 mg/dL (70-105); Potassium 4.3 mmol/L (3.5-5.1); Sodium 133 mmol/L (136-145)
--- NOTE | 2019-08-31 14:06 | CT ---
CT BRAIN WITHOUT CONTRAST: HISTORY: Headache, intracranial hemorrhage. COMPARISON: 08/29/2019. FINDINGS: Acute hemorrhage in the left basal ganglia is stable. There has been interval improvement in the acu te hemorrhage in the left lateral ventricle. No evidence of acute infarct, new areas of hemorrhage, midline shift, or abnormal extraaxial fluid collections are seen. The ventricular size is stable and the basilar cisterns are patent. The bony calvarium is intact. IMPRESSION: Interval improvement since 08/29/2019. POS: [facility]
[2019-08-31] MEDS ORDERED: Iopamidol 370 76% 100 ML VIAL ONE (14:37)
--- NOTE | 2019-08-31 15:22 | CT ---
CT arteriogram head with IV contrast and 3-D imaging HISTORY: Intracranial hemorrhage. COMPARISON: Noncontrast CT head 08/31/2019. FINDINGS: Good contrast flow into each cerebral and cerebellar system. [place] of [place] is intact. No focal aneurysm or embolus evident. There is calcification within the carotid arteries at the brain base, right greater than left, with s uspected high-grade stenosis along the anterior intracavernous portion of the right internal carotid artery. No enhancing brain lesions are apparent. Acute left posterior basal ganglia hematoma, measuring 1.6 c m x 0.9 cm greatest diameters on the axial images, is unchanged from the recent exam. IMPRESSION : Source of left basal ganglia hemorrhage is not evident. Atherosclerosis with suspected high-grade stenosis of the right internal carotid artery at its anteri or intracavernous segment.
== END 2019-08-31 17:30 | disposition home or self-care (01) ==
LOC: ERS 12:27
DX: R51 Headache (principal); I25.2 Old myocardial infarction; I10 Essential (primary) hypertension; E11.9 Type 2 diabetes mellitus without complications; Z86.73 Personal history of transient ischemic attack (TIA), and cerebral infarction without residual deficits; F32.9 Major depressive disorder, single episode, unspecified; F17.210 Nicotine dependence, cigarettes, uncomplicated; Z79.899 Other long term (current) drug therapy
CPT/HCPCS: 70450; 70496; 80053; 85025; 96365; 96375; J1200; J2765; Q9967

== ENCOUNTER 2020-04-30 14:13 | Emergency (ER) | payer SELFPAY ==
[2020-04-30 15:01] LABS: #Basophils 0.1 thou/uL (0.0-0.2); #Eosinphils 0.4 thou/uL (0.0-0.7); #Lymphocytes 2.2 thou/uL (1.20-3.40); #Monocytes 0.6 thou/uL (0.11-0.59); #Neutrophils 4.9 thou/uL (1.40-6.50); %Basophils 0.8 % (0.0-1.0); %Eosinophils 5.3 % (0.0-10.0); %Lymphocytes 26.2 % (21.0-51.0); %Monocytes 7.6 % (0.0-10.0); %Neutrophils 60.1 % (42.0-75.0); Hemoglobin 16.5 g/dL (14.0-18.0); Mean Corpuscular HGB CONC 35.4 g/dL (32.0-36.0); Mean Corpuscular Hemoglobin 34.5 pg (27.0-31.0); Mean Corpuscular Volume 97.4 fL (78.0-98.0); Mean Platelet Volume 7.8 fL (7.4-10.4); Platelet Count 173 thou/uL (130-400); RBC Distribution Width 11.3 % (11.5-14.5); Red Blood Cell (RBC) Count 4.78 mill/uL (4.70-6.10); White Blood Cell (WBC) Count 8.2 thou/uL (4.8-10.8)
--- NOTE | 2020-04-30 15:05 | RAD ---
EXAM: Chest one view: HISTORY: Headache chest pain COMPARISON: 08/24/2019 FINDINGS: Heart size: Within normal limits. Lungs: Clear of acute process. No evidence for confluent lobar pneumonia, significant pleural effusion, acute edema, or pneumothorax , or other significant acute process. IMPRESSION: No significant acute intrathoracic disease.
[2020-04-30 15:29] LABS: ALT (SGPT) 17 U/L (8-55); AST (SGOT) 35 U/L (5-34); Alkaline Phosphatase 77 U/L (40-110); Anion Gap 15 mmol/L (10-20); BUN (Urea Nitrogen) 20 mg/dL (8.4-25.7); Bilirubin, Total 1.2 mg/dL (0.2-1.2); Calc. Creatinine Clearance 0 mL/min (70-130); Calcium 9.2 mg/dL (7.8-10.44); Carbon Dioxide 27 mmol/L (22-29); Chloride 102 mmol/L (98-107); Estimated GFR-MDRD 67; Globulin 3.9 g/dL (2.4-3.5); Glucose 105 mg/dL (70-105); Potassium 3.7 mmol/L (3.5-5.1); Protein, Total 7.9 g/dL (6.0-8.3); Sodium 140 mmol/L (136-145)
[2020-04-30] MEDS ORDERED: Morphine 2 MG/ML VIAL ONE (15:43)
[2020-04-30] MEDS ORDERED: Labetalol HCl 100 MG/20 ML VIAL ONE (15:45)
--- NOTE | 2020-04-30 15:50 | CT ---
EXAM: Brain CTWithout contrast: HISTORY: Headache COMPARISON: 08/31/2019 FINDINGS: Previously noted left intracerebral hemorrhage has resolved. No focal mass or midline shift. No intra or extra-axial hemorrhage. Sinuses and mastoids are clear of acute process. IMPRESSION: No mass or bleed or other significant acute intracranial process.
[2020-04-30 16:17] LABS: Prothrombin Time 13.4 sec (12.0-14.7)
[2020-04-30 16:18] LABS: PTT 32.8 sec (22.9-36.1)
[2020-04-30] MEDS ORDERED: diphenhydrAMINE 12.5 MG/5 ML UDCUP ONE (17:01)
[2020-04-30] MEDS ORDERED: diphenhydrAMINE 50 MG/ML VIAL ONE ×2 (17:06→17:31)
[2020-04-30] MEDS ORDERED: Metoclopramide HCl 10 MG/2 ML VIAL ONE (17:06)
== END 2020-04-30 19:09 | disposition home or self-care (01) ==
LOC: ERS 14:13
DX: R51.9 Headache, unspecified (principal); E11.9 Type 2 diabetes mellitus without complications; F41.9 Anxiety disorder, unspecified; F32.9 Major depressive disorder, single episode, unspecified; F17.210 Nicotine dependence, cigarettes, uncomplicated; I25.2 Old myocardial infarction; Z86.73 Personal history of transient ischemic attack (TIA), and cerebral infarction without residual deficits; Z79.899 Other long term (current) drug therapy
CPT/HCPCS: 36415; 70450; 71045; 80053; 84484; 85025; 85610; 85730; 93005; 96365; 96366; 96375; J1200; J2270; J2765; Q0163

== ENCOUNTER 2020-08-13 09:45 | Observation (INO) | payer SELFPAY ==
[2020-08-13 10:32] LABS: #Basophils 0.1 thou/uL (0.0-0.2); #Eosinphils 0.4 thou/uL (0.0-0.7); #Monocytes 0.6 thou/uL (0.11-0.59); %Basophils 1.1 % (0.0-1.0); %Eosinophils 5.3 % (0.0-10.0); %Monocytes 7.2 % (0.0-10.0); %Neutrophils 61.4 % (42.0-75.0); Hemoglobin 15.1 g/dL (14.0-18.0); Mean Corpuscular HGB CONC 35.6 g/dL (32.0-36.0); Mean Corpuscular Hemoglobin 33.6 pg (27.0-31.0); Mean Corpuscular Volume 94.3 fL (78.0-98.0); Platelet Count 192 thou/uL (130-400); RBC Distribution Width 11.2 % (11.5-14.5); White Blood Cell (WBC) Count 8.1 thou/uL (4.8-10.8)
[2020-08-13 10:48] LABS: ALT (SGPT) 15 U/L (8-55); AST (SGOT) 20 U/L (5-34); Albumin 4.2 g/dL (3.5-5.0); Alkaline Phosphatase 91 U/L (40-110); Anion Gap 13 mmol/L (10-20); BUN (Urea Nitrogen) 19 mg/dL (8.4-25.7); Bilirubin, Total 1.2 mg/dL (0.2-1.2); Calc. Creatinine Clearance 0 mL/min (70-130); Calcium 9.3 mg/dL (7.8-10.44); Carbon Dioxide 26 mmol/L (22-29); Chloride 105 mmol/L (98-107); Globulin 3.7 g/dL (2.4-3.5); Glucose 107 mg/dL (70-105); Potassium 3.6 mmol/L (3.5-5.1); Protein, Total 7.9 g/dL (6.0-8.3); Sodium 140 mmol/L (136-145)
[2020-08-13] MEDS ORDERED: Iopamidol-370 76% 500 ML 1 ML ONE (12:03)
[2020-08-13] MEDS ORDERED: Lisinopril 10 MG TAB ONE (12:19)
[2020-08-13 12:23] LABS: Troponin I 0.027 ng/mL (< 0.028)
[2020-08-13] MEDS ORDERED: hydrALAZINE 20 MG/ML VIAL SLOW IVP SCH (13:15)
[2020-08-13] MEDS ORDERED: hydrALAZINE 20 MG/ML VIAL SLOW IVP PRN (13:16)
[2020-08-13] MEDS ORDERED: hydrALAZINE 20 MG/ML VIAL ONE (13:22)
[2020-08-13] MEDS ORDERED: Dextrose 50% Abboject 50 ML SYRINGE SLOW IVP PRN (13:31)
[2020-08-13] MEDS ORDERED: HumaLOG 300 UNITS/3 ML VIAL SC PRN (13:31)
[2020-08-13] MEDS ORDERED: Dextrose 5% in Water 1,000 ML IV PRN (13:31)
[2020-08-13 15:01] VITALS: BMI 26.2
[2020-08-13] MEDS ORDERED: NIFEdipine XL 60 MG TAB PO SCH (17:00)
[2020-08-13 22:57] LABS: SARS-CoV-2 PCR by NAA Not Detected (NotDetected)
[2020-08-14 04:55] LABS: #Basophils 0.1 thou/uL (0.0-0.2); #Eosinphils 0.5 thou/uL (0.0-0.7); #Lymphocytes 2.9 thou/uL (1.20-3.40); #Monocytes 0.7 thou/uL (0.11-0.59); #Neutrophils 5.8 thou/uL (1.40-6.50); %Basophils 0.7 % (0.0-1.0); %Eosinophils 5.4 % (0.0-10.0); %Lymphocytes 29.3 % (21.0-51.0); %Monocytes 6.7 % (0.0-10.0); %Neutrophils 57.9 % (42.0-75.0); Hemoglobin 14.4 g/dL (14.0-18.0); Mean Corpuscular HGB CONC 34.5 g/dL (32.0-36.0); Mean Corpuscular Hemoglobin 32.5 pg (27.0-31.0); Mean Corpuscular Volume 94.2 fL (78.0-98.0); Mean Platelet Volume 8.1 fL (7.4-10.4); Platelet Count 197 thou/uL (130-400); RBC Distribution Width 11.3 % (11.5-14.5); Red Blood Cell (RBC) Count 4.43 mill/uL (4.70-6.10)
[2020-08-14 05:05] LABS: Anion Gap 12 mmol/L (10-20); BUN (Urea Nitrogen) 22 mg/dL (8.4-25.7); Calc. Creatinine Clearance 77 mL/min (70-130); Calcium 8.7 mg/dL (7.8-10.44); Carbon Dioxide 24 mmol/L (22-29); Chloride 108 mmol/L (98-107); Glucose 110 mg/dL (70-105); Potassium 3.5 mmol/L (3.5-5.1); Sodium 140 mmol/L (136-145)
[2020-08-14 08:40] VITALS: BP 125/70; TEMP 98.2
[2020-08-14] MEDS ORDERED: Lisinopril 20 MG TAB PO SCH (09:00)
[2020-08-14] MEDS ORDERED: FLU VACC QS2020-21(6MOS UP)/PF 60 MCG/0.5 ML SYRINGE IM ONE (15:15)
== END 2020-08-14 12:16 | disposition home or self-care (01) ==
LOC: ERS 09:45 → 2NO 13:01
PROVIDERS: ADMIT Internal Medicine; ATTEND Internal Medicine
DX: I16.0 Hypertensive urgency (principal); I10 Essential (primary) hypertension; R10.13 Epigastric pain; E11.9 Type 2 diabetes mellitus without complications; I25.10 Atherosclerotic heart disease of native coronary artery without angina pectoris; E78.00 Pure hypercholesterolemia, unspecified; R91.1 Solitary pulmonary nodule; I25.2 Old myocardial infarction; G89.29 Other chronic pain; M54.9 Dorsalgia, unspecified; F32.9 Major depressive disorder, single episode, unspecified; Z91.14 Patient's other noncompliance with medication regimen; Z86.73 Personal history of transient ischemic attack (TIA), and cerebral infarction without residual deficits; Z87.891 Personal history of nicotine dependence; Z79.899 Other long term (current) drug therapy; Z20.822 Contact with and (suspected) exposure to COVID-19
CPT/HCPCS: 36415; 36416; 70450; 74177; 80048; 80053; 84484; 85025; 87635; 93005; 96374; G0378; J0360; Q9967; U0003; U0005

== ENCOUNTER 2020-11-16 08:16 | Emergency (ER) | payer SELFPAY | END 2020-11-16 09:36 | disposition home or self-care (01) | LOC: ERS 08:16 | DX: J06.9 Acute upper respiratory infection, unspecified (principal); Z79.899 Other long term (current) drug therapy; E11.9 Type 2 diabetes mellitus without complications; I10 Essential (primary) hypertension; Z87.891 Personal history of nicotine dependence | CPT/HCPCS: 99283 ==

== ENCOUNTER 2021-03-28 09:18 | Emergency (ER) | payer SELFPAY ==
[2021-03-28] MEDS ORDERED: Ketorolac Tromethamine 30 MG/ML VIAL ONE (11:05)
== END 2021-03-28 11:25 | disposition home or self-care (01) ==
LOC: ERS 09:18
DX: M16.11 Unilateral primary osteoarthritis, right hip (principal); E11.9 Type 2 diabetes mellitus without complications; I10 Essential (primary) hypertension; Z86.73 Personal history of transient ischemic attack (TIA), and cerebral infarction without residual deficits; Z87.891 Personal history of nicotine dependence
CPT/HCPCS: 96372; J1885

== ENCOUNTER 2021-10-11 13:22 | Emergency (ER) | payer OTHER, BC | END 2021-10-11 15:25 | disposition home or self-care (01) | LOC: ERS 13:22 | DX: S83.91XA Sprain of unspecified site of right knee, initial encounter (principal); I10 Essential (primary) hypertension; E11.9 Type 2 diabetes mellitus without complications; W20.8XXA Other cause of strike by thrown, projected or falling object, initial encounter; Y92.69 Other specified industrial and construction area as the place of occurrence of the external cause; Z86.73 Personal history of transient ischemic attack (TIA), and cerebral infarction without residual deficits; Z87.891 Personal history of nicotine dependence ==

== ENCOUNTER 2022-02-04 00:45 | Observation (INO) | payer BC ==
[2022-02-04] MEDS ORDERED: Ondansetron PF 4 MG/2 ML Vial ONE (01:11)
[2022-02-04 01:47] LABS: #Eosinphils 0.6 thou/uL (0.0-0.7); #Lymphocytes 2.5 thou/uL (1.20-3.40); #Monocytes 0.7 thou/uL (0.11-0.59); #Neutrophils 8.5 thou/uL (1.40-6.50); %Basophils 0.4 % (0.0-1.0); %Eosinophils 4.7 % (0.0-10.0); %Lymphocytes 20.3 % (21.0-51.0); %Neutrophils 68.6 % (42.0-75.0); Mean Corpuscular HGB CONC 35.3 g/dL (32.0-36.0); Mean Corpuscular Hemoglobin 34.2 pg (27.0-31.0); Mean Corpuscular Volume 96.8 fL (78.0-98.0); Mean Platelet Volume 7.9 fL (7.4-10.4); Platelet Count 178 thou/uL (130-400); RBC Distribution Width 11.4 % (11.5-14.5); Red Blood Cell (RBC) Count 4.97 mill/uL (4.70-6.10); White Blood Cell (WBC) Count 12.4 thou/uL (4.8-10.8)
[2022-02-04] MEDS ORDERED: Lidocaine Viscous Sol 2% 15 ml UD Cup ONE (01:51)
[2022-02-04] MEDS ORDERED: Mag-Al 1200 mg/1200 mg/30 ML UDCUP ONE (01:51)
[2022-02-04 02:05] LABS: ALT (SGPT) 78 U/L (8-55); AST (SGOT) 170 U/L (5-34); Albumin 4.2 g/dL (3.5-5.0); Alkaline Phosphatase 101 U/L (40-110); Anion Gap 16 mmol/L (10-20); BUN (Urea Nitrogen) 26 mg/dL (8.4-25.7); Bilirubin, Total 2.4 mg/dL (0.2-1.2); Calc. Creatinine Clearance 0 mL/min (70-130); Calcium 9.7 mg/dL (7.8-10.44); Carbon Dioxide 24 mmol/L (22-29); Chloride 105 mmol/L (98-107); Estimated GFR 67; Glucose 161 mg/dL (70-105); Potassium 3.9 mmol/L (3.5-5.1); Protein, Total 8.2 g/dL (6.0-8.3); Sodium 141 mmol/L (136-145)
[2022-02-04 02:34] LABS: Lipase 13871 U/L (8-78)
[2022-02-04] MEDS ORDERED: Ondansetron PF 4 MG/2 ML Vial IVP PRN (03:42)
[2022-02-04] MEDS ORDERED: Ondansetron ODT 4 MG TAB PO PRN (03:42)
[2022-02-04] MEDS ORDERED: Lorazepam 2 MG/ML VIAL IM PRN (03:42)
[2022-02-04] MEDS ORDERED: Lorazepam 1 MG TAB PO PRN (03:42)
[2022-02-04] MEDS ORDERED: Electrolyte Replacement Protocol 1 EACH FS SCH (03:45)
[2022-02-04] MEDS ORDERED: Morphine 2 MG/ML VIAL SLOW IVP PRN (03:49)
[2022-02-04] MEDS ORDERED: Ketorolac Tromethamine 30 MG/ML VIAL IVP PRN (03:49)
[2022-02-04 04:04] LABS: Bilirubin Negative (Negative); Blood, Urine Negative (Negative); Clarity Clear (Clear); Glucose, Urine (Dipstick) 150 mg/dL (Negative); Ketone, Urine Negative (Negative); Leukocyte Negative Leu/uL (Negative); Nitrite Negative (Negative); Protein, Urine (Dipstick) 20 mg/dL (Neg-Trace); Specific Gravity, Urine 1.015 (1.002-1.036); Urobilinogen 6 mg/dL (Less than 2); pH, Urine 5.5 (5.0-9.0)
[2022-02-04] MEDS ORDERED: Dextrose 5% in Water 1,000 ML IV PRN (04:28)
[2022-02-04] MEDS ORDERED: HumaLOG 300 UNITS/3 ML VIAL SC PRN ×2 (04:28)
[2022-02-04] MEDS ORDERED: Dextrose 50% Abboject 50 ML SYRINGE SLOW IVP PRN (04:28)
[2022-02-04] MEDS: Lactated Ringer's 1,000 ML IV SCH ×4 (04:49→20:39)
[2022-02-04 04:55] VITALS: BMI 26.6
[2022-02-04 05:08] LABS: Acetaminophen Less than 10.0 mcg/mL (10.0-30.0); Alcohol Less than 10 mg/dL (Less than 10); Cardiac Risk 2.7 (Less than 4.5); Cholesterol 173 mg/dl (< 200 Desired); HDL Cholesterol 63 mg/dL (>60 Neg Risk); LDL Cholesterol, Calculated 91 mg/dL; Salicylate Less than 8.0 mg/dL (15.0-30.0); Triglycerides 97 mg/dL (Less than 150)
[2022-02-04] MEDS: Lorazepam 1 MG TAB PO SCH ×4 (05:08→21:52)
[2022-02-04] MEDS: Thiamine HCl 200 MG/2 ML VIAL SLOW IVP SCH (05:08)
[2022-02-04 05:09] LABS: Magnesium 2.2 mg/dL (1.6-2.6); Phosphorus 4.4 mg/dL (2.3-4.7)
[2022-02-04 05:20] LABS: Amphetamine Not Detected (NotDetected); Barbiturates Screen Not Detected (NotDetected); Benzodiazepine Screen Not Detected (NotDetected); Cocaine Metabolite Screen Not Detected (NotDetected); Methadone Not Detected (NotDetected); Methamphetamine Not Detected (NotDetected); Opiate Screen Not Detected (NotDetected); Oxycodone Screen Not Detected (NotDetected); Phencyclidine (PCP) Not Detected (NotDetected); THC/Cannabinoid Screen Not Detected (NotDetected); Tricyclic Screen Not Detected (NotDetected)
[2022-02-04 05:36] LABS: Hemoglobin A1c 6.6 % (4.0-6.0)
[2022-02-04] MEDS: Lisinopril 10 MG TAB PO SCH (10:46)
[2022-02-04] MEDS: Multivit, Therapeutic 1 TAB PO SCH (10:46)
[2022-02-04] MEDS: Folic Acid 1 MG TAB PO SCH (10:46)
[2022-02-04] MEDS: Pantoprazole 40 MG VIAL IVP SCH (10:47)
[2022-02-04 14:37] LABS: ALT (SGPT) 74 U/L (8-55); AST (SGOT) 87 U/L (5-34); Albumin 3.6 g/dL (3.5-5.0); Alkaline Phosphatase 79 U/L (40-110); Anion Gap 12 mmol/L (10-20); BUN (Urea Nitrogen) 25 mg/dL (8.4-25.7); Bilirubin, Total 2.3 mg/dL (0.2-1.2); Calc. Creatinine Clearance 86 mL/min (70-130); Calcium 8.9 mg/dL (7.8-10.44); Carbon Dioxide 24 mmol/L (22-29); Chloride 107 mmol/L (98-107); Estimated GFR 86; Globulin 3.2 g/dL (2.4-3.5); Glucose 95 mg/dL (70-105); Potassium 4.1 mmol/L (3.5-5.1); Protein, Total 6.8 g/dL (6.0-8.3); Sodium 139 mmol/L (136-145)
[2022-02-04 14:51] LABS: Lipase 1259 U/L (8-78)
[2022-02-04] MEDS ORDERED: hydrALAZINE 20 MG/ML VIAL SLOW IVP PRN (15:56)
[2022-02-04] MEDS: hydrALAZINE 20 MG/ML VIAL SLOW IVP PRN (18:06)
[2022-02-05] MEDS: Lactated Ringer's 1,000 ML IV SCH ×5 (02:01→20:40)
[2022-02-05] MEDS: Thiamine HCl 200 MG/2 ML VIAL SLOW IVP SCH (03:26)
[2022-02-05] MEDS: Lorazepam 1 MG TAB PO SCH ×4 (03:27→20:25)
[2022-02-05] MEDS ORDERED: Lorazepam 1 MG TAB PO PRN (03:42)
[2022-02-05 08:18] LABS: ALT (SGPT) 55 U/L (8-55); AST (SGOT) 45 U/L (5-34); Albumin 3.6 g/dL (3.5-5.0); Alkaline Phosphatase 75 U/L (40-110); Anion Gap 14 mmol/L (10-20); BUN (Urea Nitrogen) 16 mg/dL (8.4-25.7); Bilirubin, Total 1.9 mg/dL (0.2-1.2); Calc. Creatinine Clearance 106 mL/min (70-130); Calcium 9.1 mg/dL (7.8-10.44); Carbon Dioxide 22 mmol/L (22-29); Chloride 104 mmol/L (98-107); Estimated GFR 103; Globulin 3.2 g/dL (2.4-3.5); Glucose 81 mg/dL (70-105); Lipase 103 U/L (8-78); Potassium 3.7 mmol/L (3.5-5.1); Protein, Total 6.8 g/dL (6.0-8.3); Sodium 136 mmol/L (136-145)
[2022-02-05] MEDS: Pantoprazole 40 MG VIAL IVP SCH (09:27)
[2022-02-05] MEDS: Folic Acid 1 MG TAB PO SCH (09:27)
[2022-02-05] MEDS: Multivit, Therapeutic 1 TAB PO SCH (09:27)
[2022-02-05] MEDS: Lisinopril 10 MG TAB PO SCH (09:27)
[2022-02-05] MEDS ORDERED: CEFAZOLIN 2 GM in Sodium Chloride 0.9% 100 ML IVPB SCH (14:15)
[2022-02-05] MEDS ORDERED: Bupivacaine/Epinephrine 0.25% 30 ML VIAL ONE (15:49)
[2022-02-05] MEDS ORDERED: Iopamidol 15 ML ONE (15:49)
[2022-02-05] MEDS ORDERED: Midazolam HCl 5 mg/5 ml Vial ONE (16:16)
[2022-02-05] MEDS ORDERED: fentaNYL Citrate/PF 100 MCG/2 ML SYRINGE ONE (16:16)
[2022-02-05] MEDS ORDERED: HYDROmorphone 0.5 MG/0.5 ML SYRINGE ONE (16:16)
[2022-02-05] MEDS ORDERED: SUGAMMADEX SODIUM 200 MG/2 ML VIAL ONE (16:17)
[2022-02-05] MEDS ORDERED: Sodium Chloride 0.9% 100 ML ONE (16:29)
[2022-02-05] MEDS ORDERED: CEFAZOLIN 2 GM VIAL ONE (16:29)
[2022-02-05] MEDS ORDERED: Rocuronium Bromide 10 MG/ML (10ML VIAL) ONE (16:49)
[2022-02-05] MEDS ORDERED: PROPOFOL 200 MG/20 ML VIAL ONE (16:49)
[2022-02-05] MEDS ORDERED: Neostigmine Methylsulfate 3 MG/3 ML SYRINGE ONE (16:49)
[2022-02-05] MEDS ORDERED: Lidocaine 1% MPF 2 ML VIAL ONE (16:49)
[2022-02-05] MEDS ORDERED: Glycopyrrolate 0.2 MG/ML 5 ML SYRINGE ONE (16:49)
[2022-02-05] MEDS ORDERED: Promethazine HCl 25 MG/ML VIAL IM PRN (18:18)
[2022-02-05] MEDS ORDERED: HYDROmorphone 2 MG/ML VIAL SLOW IVP PRN (18:18)
[2022-02-05] MEDS ORDERED: Ondansetron HCl/PF 4 MG/2 ML Vial IVP PRN (18:18)
[2022-02-05] MEDS ORDERED: Promethazine HCl 25 MG/ML VIAL IVPB PRN (18:18)
[2022-02-05] MEDS ORDERED: traMADol HCl 50 MG TAB PO PRN ×2 (18:31)
[2022-02-05] MEDS ORDERED: Ondansetron PF 4 MG/2 ML Vial ONE (19:04)
[2022-02-05] MEDS: hydrALAZINE 20 MG/ML VIAL SLOW IVP PRN (20:32)
[2022-02-06] MEDS: Lactated Ringer's 1,000 ML IV SCH ×2 (01:35→09:13)
[2022-02-06] MEDS ORDERED: Lorazepam 1 MG TAB PO PRN (03:42)
[2022-02-06] MEDS: Lorazepam 0.5 MG TAB PO SCH ×2 (04:10→09:14)
[2022-02-06] MEDS: Thiamine HCl 200 MG/2 ML VIAL SLOW IVP SCH (04:11)
[2022-02-06 07:19] LABS: ALT (SGPT) 45 U/L (8-55); AST (SGOT) 33 U/L (5-34); Albumin 3.6 g/dL (3.5-5.0); Alkaline Phosphatase 75 U/L (40-110); Anion Gap 15 mmol/L (10-20); BUN (Urea Nitrogen) 15 mg/dL (8.4-25.7); Calc. Creatinine Clearance 96 mL/min (70-130); Calcium 9.2 mg/dL (7.8-10.44); Carbon Dioxide 22 mmol/L (22-29); Chloride 104 mmol/L (98-107); Estimated GFR 98; Globulin 3.5 g/dL (2.4-3.5); Glucose 169 mg/dL (70-105); Lipase 17 U/L (8-78); Protein, Total 7.1 g/dL (6.0-8.3); Sodium 137 mmol/L (136-145)
[2022-02-06] MEDS ORDERED: Lisinopril 20 MG TAB PO SCH (09:00)
[2022-02-06] MEDS ORDERED: Amlodipine 5 MG TAB PO SCH (09:00)
[2022-02-06] MEDS: Multivit, Therapeutic 1 TAB PO SCH (09:13)
[2022-02-06] MEDS: Folic Acid 1 MG TAB PO SCH (09:14)
[2022-02-06] MEDS: Pantoprazole 40 MG VIAL IVP SCH (09:14)
[2022-02-06 11:56] VITALS: TEMP 98.1
[2022-02-06] MEDS: hydrALAZINE 20 MG/ML VIAL SLOW IVP PRN (12:35)
[2022-02-06 14:13] VITALS: BP 146/74
[2022-02-07] MEDS ORDERED: Lorazepam 0.5 MG TAB PO PRN (03:42)
[2022-02-07] MEDS ORDERED: Thiamine 100 MG TAB PO SCH (03:45)
== END 2022-02-06 14:24 | disposition home or self-care (01) ==
LOC: ERS 00:45 → T4-B 03:19
PROVIDERS: ADMIT Family Medicine; ATTEND Family Medicine
PROC: 0FT44ZZ Resection of Gallbladder, Percutaneous Endoscopic Approach (ICD-10-PCS; principal; 2022-02-05)
PROC: BF101ZZ Fluoroscopy of Bile Ducts using Low Osmolar Contrast (ICD-10-PCS; 2022-02-05)
DX: K80.12 Calculus of gallbladder with acute and chronic cholecystitis without obstruction (principal); K85.10 Biliary acute pancreatitis without necrosis or infection; F10.20 Alcohol dependence, uncomplicated; D72.829 Elevated white blood cell count, unspecified; E11.9 Type 2 diabetes mellitus without complications; I10 Essential (primary) hypertension; G89.29 Other chronic pain; M54.9 Dorsalgia, unspecified; K74.60 Unspecified cirrhosis of liver; J32.8 Other chronic sinusitis; F14.11 Cocaine abuse, in remission; Z51.5 Encounter for palliative care; Z86.73 Personal history of transient ischemic attack (TIA), and cerebral infarction without residual deficits; Z87.891 Personal history of nicotine dependence; Z79.899 Other long term (current) drug therapy; Z20.822 Contact with and (suspected) exposure to COVID-19; Y90.0 Blood alcohol level of less than 20 mg/100 ml
CPT/HCPCS: 36415; 36416; 47532; 70450; 76705; 80053; 80061; 80306; 80307; 81003; 83036; 83690; 83735; 84100; 85025; 87086; 88304; 93005; 96374; 96375; 96376; C1713; C9113; G0378; J0360; J0690; J1170; J1610; J2250; J2405; J2704; J3411; J3490; J7120; Q9967; U0003; U0005

== ENCOUNTER 2022-04-12 14:18 | Observation (INO) | payer BC ==
[2022-04-12 15:11] LABS: #Eosinphils 0.5 thou/uL (0.0-0.7); #Lymphocytes 2.4 thou/uL (1.20-3.40); #Monocytes 0.7 thou/uL (0.11-0.59); #Neutrophils 4.7 thou/uL (1.40-6.50); %Basophils 0.2 % (0.0-1.0); %Eosinophils 6.2 % (0.0-10.0); %Lymphocytes 28.9 % (21.0-51.0); %Monocytes 7.9 % (0.0-10.0); %Neutrophils 56.8 % (42.0-75.0); Hemoglobin 14.3 g/dL (14.0-18.0); Mean Corpuscular HGB CONC 33.9 g/dL (32.0-36.0); Mean Corpuscular Hemoglobin 32.7 pg (27.0-31.0); Mean Corpuscular Volume 96.3 fl (78.0-98.0); Mean Platelet Volume 7.4 fL (7.4-10.4); Platelet Count 204 thou/uL (130-400); RBC Distribution Width 12.3 % (11.5-14.5); Red Blood Cell (RBC) Count 4.36 mill/uL (4.70-6.10); White Blood Cell (WBC) Count 8.3 thou/uL (4.8-10.8)
[2022-04-12 15:47] LABS: ALT (SGPT) 19 U/L (8-55); AST (SGOT) 28 U/L (5-34); Albumin 4.4 g/dL (3.5-5.0); Alkaline Phosphatase 83 U/L (40-110); Anion Gap 10 mmol/L (10-20); BUN (Urea Nitrogen) 21 mg/dL (8.4-25.7); Bilirubin, Total 1.3 mg/dL (0.2-1.2); Calc. Creatinine Clearance 0 mL/min (70-130); Calcium 9.4 mg/dL (7.8-10.44); Carbon Dioxide 27 mmol/L (22-29); Chloride 107 mmol/L (98-107); Estimated GFR 71; Globulin 3.3 g/dL (2.4-3.5); Glucose 87 mg/dL (70-105); Potassium 4.1 mmol/L (3.5-5.1); Protein, Total 7.7 g/dL (6.0-8.3); Sodium 140 mmol/L (136-145)
[2022-04-12] MEDS ORDERED: Aspirin Chewable 81 MG TAB ONE (18:02)
[2022-04-12] MEDS ORDERED: Nitroglycerin 2% Ointment 1 INCH/1 GM Packet ONE (18:03)
[2022-04-12 19:09] LABS: Troponin I Less than 0.010 ng/mL (< 0.028)
[2022-04-12] MEDS ORDERED: Nitroglycerin 0.4 MG TAB (25 Tab Bottle) SL PRN (19:37)
[2022-04-12] MEDS ORDERED: HumaLOG 300 UNITS/3 ML VIAL SC PRN ×2 (19:37)
[2022-04-12] MEDS ORDERED: Dextrose 5% in Water 1,000 ML IV PRN (19:37)
[2022-04-12] MEDS ORDERED: Dextrose 50% Abboject 50 ML SYRINGE SLOW IVP PRN (19:37)
[2022-04-12] MEDS: Atorvastatin Calcium 40 MG TAB PO SCH (21:16)
[2022-04-12 21:49] VITALS: BMI 26.3
[2022-04-12 21:54] LABS: Troponin I Less than 0.010 ng/mL (< 0.028)
[2022-04-12] MEDS: Nitroglycerin 2% Ointment 1 INCH/1 GM Packet TOP SCH (22:04)
[2022-04-12] MEDS ORDERED: Acetaminophen 325 MG TAB PO PRN (22:20)
[2022-04-12] MEDS ORDERED: Ondansetron ODT 4 MG TAB PO PRN (22:20)
[2022-04-12] MEDS ORDERED: Amlodipine 5 MG TAB PO SCH (22:45)
[2022-04-12 23:35] LABS: Amphetamine Not Detected (NotDetected); Barbiturates Screen Not Detected (NotDetected); Benzodiazepine Screen Not Detected (NotDetected); Cocaine Metabolite Screen Not Detected (NotDetected); Methadone Not Detected (NotDetected); Methamphetamine Not Detected (NotDetected); Opiate Screen Not Detected (NotDetected); Oxycodone Screen Not Detected (NotDetected); Phencyclidine (PCP) Not Detected (NotDetected); THC/Cannabinoid Screen Not Detected (NotDetected); Tricyclic Screen Not Detected (NotDetected)
[2022-04-13 04:49] LABS: #Eosinphils 0.6 thou/uL (0.0-0.7); #Lymphocytes 1.7 thou/uL (1.20-3.40); #Monocytes 0.5 thou/uL (0.11-0.59); #Neutrophils 3.1 thou/uL (1.40-6.50); %Basophils 0.5 % (0.0-1.0); %Eosinophils 10.3 % (0.0-10.0); %Lymphocytes 28.1 % (21.0-51.0); %Monocytes 8.5 % (0.0-10.0); %Neutrophils 52.6 % (42.0-75.0); Hemoglobin 13.8 g/dL (14.0-18.0); Mean Corpuscular HGB CONC 33.6 g/dL (32.0-36.0); Mean Corpuscular Hemoglobin 32.4 pg (27.0-31.0); Mean Corpuscular Volume 96.3 fl (78.0-98.0); Mean Platelet Volume 7.7 fL (7.4-10.4); Platelet Count 187 thou/uL (130-400); RBC Distribution Width 12.4 % (11.5-14.5); Red Blood Cell (RBC) Count 4.26 mill/uL (4.70-6.10)
[2022-04-13 05:18] LABS: Hemoglobin A1c 6.1 % (4.0-6.0)
[2022-04-13 05:23] LABS: Anion Gap 13 mmol/L (10-20); BUN (Urea Nitrogen) 23 mg/dL (8.4-25.7); Calc. Creatinine Clearance 74 mL/min (70-130); Calcium 9.4 mg/dL (7.8-10.44); Carbon Dioxide 25 mmol/L (22-29); Cardiac Risk 2.6 (Less than 4.5); Chloride 105 mmol/L (98-107); Cholesterol 134 mg/dl (< 200 Desired); Estimated GFR 74; Glucose 127 mg/dL (70-105); HDL Cholesterol 52 mg/dL (>60 Neg Risk); LDL Cholesterol, Calculated 34 mg/dL; Magnesium 2.1 mg/dL (1.6-2.6); Potassium 3.9 mmol/L (3.5-5.1); Sodium 139 mmol/L (136-145); Triglycerides 241 mg/dL (Less than 150)
[2022-04-13] MEDS: Nitroglycerin 2% Ointment 1 INCH/1 GM Packet TOP SCH ×3 (06:39→21:18)
[2022-04-13] MEDS ORDERED: ADENOSINE 60 MG/20 ML VIAL ONE (08:50)
[2022-04-13] MEDS ORDERED: Lisinopril 10 MG TAB PO SCH (09:00)
[2022-04-13] MEDS ORDERED: FLU VACC QS2022-23(6MOS UP)/PF 60 MCG/0.5 ML SYRINGE IM ONE (09:00)
[2022-04-13 19:27] VITALS: TEMP 98
[2022-04-13] MEDS ORDERED: Amlodipine 5 MG TAB PO SCH (21:00)
[2022-04-13] MEDS: Atorvastatin Calcium 40 MG TAB PO SCH (21:17)
[2022-04-13 21:18] VITALS: BP 132/77
== END 2022-04-13 22:11 | disposition home or self-care (01) ==
LOC: ERS 14:18 → 2SW 18:20
PROVIDERS: ADMIT Internal Medicine; ATTEND Physician Assistant
DX: R07.2 Precordial pain (principal); E11.9 Type 2 diabetes mellitus without complications; I10 Essential (primary) hypertension; I25.2 Old myocardial infarction; G89.29 Other chronic pain; M54.9 Dorsalgia, unspecified; F10.10 Alcohol abuse, uncomplicated; F14.11 Cocaine abuse, in remission; I08.8 Other rheumatic multiple valve diseases; Z86.73 Personal history of transient ischemic attack (TIA), and cerebral infarction without residual deficits; Z87.891 Personal history of nicotine dependence; Z79.899 Other long term (current) drug therapy; Z20.822 Contact with and (suspected) exposure to COVID-19
CPT/HCPCS: 36415; 36416; 71045; 78452; 80048; 80053; 80061; 80306; 83036; 83690; 83735; 83880; 84443; 84484; 85025; 93005; 93017; 93306; 94760; A9541; G0378; J0153; U0003; U0005

== ENCOUNTER 2022-09-20 10:53 | Observation (INO) | payer BC, SELFPAY ==
[2022-09-20 11:26] LABS: #Eosinphils 0.3 thou/uL (0.0-0.7); #Lymphocytes 1.6 thou/uL (1.20-3.40); #Monocytes 0.3 thou/uL (0.11-0.59); #Neutrophils 4.8 thou/uL (1.40-6.50); %Basophils 0.6 % (0.0-1.0); %Eosinophils 4.5 % (0.0-10.0); %Lymphocytes 22.3 % (21.0-51.0); %Monocytes 4.8 % (0.0-10.0); %Neutrophils 67.8 % (42.0-75.0); Hemoglobin 15.7 g/dL (14.0-18.0); Mean Corpuscular Hemoglobin 31.3 pg (27.0-31.0); Mean Corpuscular Volume 94.9 fl (78.0-98.0); Platelet Count 203 10x3/uL (130-400); RBC Distribution Width 11.6 % (11.5-14.5); Red Blood Cell (RBC) Count 5.01 mill/uL (4.70-6.10)
[2022-09-20 11:47] LABS: ALT (SGPT) 31 U/L (8-55); AST (SGOT) 57 U/L (5-34); Albumin 3.7 g/dL (3.5-5.0); Alkaline Phosphatase 80 U/L (40-110); Anion Gap 14 mmol/L (10-20); BUN (Urea Nitrogen) 16 mg/dL (8.4-25.7); Bilirubin, Total 1.4 mg/dL (0.2-1.2); Calc. Creatinine Clearance 0 mL/min (70-130); Carbon Dioxide 23 mmol/L (22-29); Chloride 102 mmol/L (98-107); Estimated GFR 75; Globulin 3.4 g/dL (2.4-3.5); Glucose 261 mg/dL (70-105); Potassium 4.3 mmol/L (3.5-5.1); Protein, Total 7.1 g/dL (6.0-8.3); Sodium 135 mmol/L (136-145)
[2022-09-20] MEDS ORDERED: Aspirin Chewable 81 MG TAB ONE (12:46)
[2022-09-20] MEDS ORDERED: Ondansetron PF 4 MG/2 ML Vial IVP PRN ×2 (12:51→15:11)
[2022-09-20] MEDS ORDERED: Acetaminophen 325 MG TAB PO PRN ×2 (12:51→15:08)
[2022-09-20] MEDS ORDERED: Senokot S 8.6-50 MG TAB PO PRN ×2 (12:51→15:13)
[2022-09-20] MEDS ORDERED: Calcium Carbonate 500 MG ChewTAB PO PRN ×2 (12:51→15:08)
[2022-09-20] MEDS ORDERED: Ondansetron ODT 4 MG TAB PO PRN ×2 (12:51→15:12)
[2022-09-20] MEDS ORDERED: Mag-Al Plus 1200 MG/1200 MG/120 MG/30 ML UDCUP PO PRN ×2 (12:55→15:11)
[2022-09-20] MEDS ORDERED: Simethicone Chewable 80 MG TAB PO PRN ×2 (12:55→15:13)
[2022-09-20] MEDS ORDERED: hydrALAZINE 20 MG/ML VIAL SLOW IVP PRN ×2 (13:02→15:10)
[2022-09-20] MEDS ORDERED: HumaLOG 300 UNITS/3 ML VIAL SC PRN (13:04)
[2022-09-20] MEDS ORDERED: Dextrose 50% Abboject 50 ML SYRINGE SLOW IVP PRN ×2 (13:04→15:08)
[2022-09-20] MEDS ORDERED: Dextrose 5% in Water 1,000 ML IV PRN ×2 (13:04→15:08)
[2022-09-20] MEDS ORDERED: Lisinopril 10 MG TAB PO SCH (13:45)
[2022-09-20] MEDS: Lisinopril 10 MG TAB PO SCH ×2 (15:03→15:28)
[2022-09-20] MEDS ORDERED: Iopamidol-370 76% 500 ML MDV (1 ML CHARGE) ONE (15:34)
[2022-09-20 15:46] VITALS: BMI 27.6
[2022-09-20] MEDS: HumaLOG 300 UNITS/3 ML VIAL SC PRN ×2 (18:33→22:08)
[2022-09-20 20:29] LABS: Troponin I Less than 0.010 ng/mL (< 0.028)
[2022-09-20] MEDS ORDERED: Atorvastatin Calcium 40 MG TAB PO SCH ×2 (21:00)
[2022-09-21 05:45] LABS: #Eosinphils 0.5 thou/uL (0.0-0.7); #Lymphocytes 1.9 thou/uL (1.20-3.40); #Monocytes 0.4 thou/uL (0.11-0.59); #Neutrophils 3.9 thou/uL (1.40-6.50); %Basophils 0.7 % (0.0-1.0); %Lymphocytes 28.2 % (21.0-51.0); %Monocytes 6.5 % (0.0-10.0); %Neutrophils 56.7 % (42.0-75.0); Hemoglobin 14.5 g/dL (14.0-18.0); Mean Corpuscular HGB CONC 33.9 g/dL (32.0-36.0); Mean Corpuscular Hemoglobin 32.4 pg (27.0-31.0); Mean Corpuscular Volume 95.7 fl (78.0-98.0); Mean Platelet Volume 8.3 fL (7.4-10.4); Platelet Count 170 10x3/uL (130-400); RBC Distribution Width 11.7 % (11.5-14.5); Red Blood Cell (RBC) Count 4.48 mill/uL (4.70-6.10); White Blood Cell (WBC) Count 6.8 10x3/uL (4.8-10.8)
[2022-09-21 06:08] LABS: Hemoglobin A1c 5.8 % (4.0-6.0)
[2022-09-21 06:12] LABS: ALT (SGPT) 25 U/L (8-55); AST (SGOT) 35 U/L (5-34); Albumin 3.3 g/dL (3.5-5.0); Alkaline Phosphatase 112 U/L (40-110); Anion Gap 12 mmol/L (10-20); BUN (Urea Nitrogen) 19 mg/dL (8.4-25.7); Bilirubin, Total 0.4 mg/dL (0.2-1.2); Calc. Creatinine Clearance 84 mL/min (70-130); Calcium 8.9 mg/dL (7.8-10.44); Carbon Dioxide 24 mmol/L (22-29); Chloride 104 mmol/L (98-107); Estimated GFR 81; Globulin 3.1 g/dL (2.4-3.5); Glucose 202 mg/dL (70-105); Potassium 3.9 mmol/L (3.5-5.1); Protein, Total 6.4 g/dL (6.0-8.3); Sodium 136 mmol/L (136-145)
[2022-09-21 07:48] VITALS: TEMP 98
[2022-09-21] MEDS ORDERED: metFORMIN 500 MG TAB PO SCH (08:00)
[2022-09-21] MEDS ORDERED: Isosorbide Dinitrate 20 MG TAB PO SCH (09:00)
[2022-09-21] MEDS ORDERED: Lisinopril 10 MG TAB PO SCH ×2 (09:00)
[2022-09-21] MEDS ORDERED: Lisinopril 20 MG TAB PO SCH (09:00)
[2022-09-21] MEDS: HumaLOG 300 UNITS/3 ML VIAL SC PRN (09:01)
[2022-09-21 11:43] VITALS: BP 160/84
== END 2022-09-21 12:46 | disposition home or self-care (01) ==
LOC: SUATTDRO 10:53 → ERS 10:53 → 2SW 13:48
PROVIDERS: ADMIT Internal Medicine; ATTEND Internal Medicine
DX: R07.89 Other chest pain (principal); I25.10 Atherosclerotic heart disease of native coronary artery without angina pectoris; I10 Essential (primary) hypertension; E11.9 Type 2 diabetes mellitus without complications; F10.11 Alcohol abuse, in remission; F14.11 Cocaine abuse, in remission; E78.5 Hyperlipidemia, unspecified; I25.2 Old myocardial infarction; K76.0 Fatty (change of) liver, not elsewhere classified; R91.8 Other nonspecific abnormal finding of lung field; G89.29 Other chronic pain; M54.9 Dorsalgia, unspecified; Z86.73 Personal history of transient ischemic attack (TIA), and cerebral infarction without residual deficits; Z87.891 Personal history of nicotine dependence; Z79.899 Other long term (current) drug therapy
CPT/HCPCS: 36415; 36416; 71045; 74177; 80053; 83036; 84484; 85025; 93005; G0378; J1815; Q9967

== ENCOUNTER 2023-02-15 09:05 | Emergency (ER) | payer BC, SELFPAY ==
[2023-02-15 10:11] LABS: #Basophils 0.1 thou/uL (0.0-0.2); #Eosinphils 0.8 thou/uL (0.0-0.7); #Monocytes 0.5 thou/uL (0.11-0.59); #Neutrophils 4.8 thou/uL (1.40-6.50); %Basophils 0.6 % (0.0-1.0); %Eosinophils 9.3 % (0.0-10.0); %Lymphocytes 26.8 % (21.0-51.0); %Monocytes 5.6 % (0.0-10.0); %Neutrophils 57.5 % (42.0-75.0); Hematocrit 43.4 % (42.0-52.0); Hemoglobin 14.6 g/dL (14.0-18.0); Mean Corpuscular HGB CONC 33.6 g/dL (32.0-36.0); Mean Corpuscular Hemoglobin 31.1 pg (27.0-31.0); Mean Corpuscular Volume 92.5 fl (78.0-98.0); Platelet Count 179 10x3/uL (130-400); RBC Distribution Width 11.9 % (11.5-14.5); Red Blood Cell (RBC) Count 4.69 mill/uL (4.70-6.10); White Blood Cell (WBC) Count 8.4 10x3/uL (4.8-10.8)
[2023-02-15 10:39] LABS: Troponin I Less than 0.010 ng/mL (< 0.028)
[2023-02-15 11:16] LABS: ALT (SGPT) 24 U/L (8-55); AST (SGOT) 25 U/L (5-34); Albumin 4.1 g/dL (3.5-5.0); Alkaline Phosphatase 99 U/L (40-110); Anion Gap 12 mmol/L (10-20); BUN (Urea Nitrogen) 22 mg/dL (8.4-25.7); Bilirubin, Total 0.7 mg/dL (0.2-1.2); Calc. Creatinine Clearance 0 mL/min (70-130); Calcium 9.5 mg/dL (7.8-10.44); Carbon Dioxide 27 mmol/L (22-29); Chloride 105 mmol/L (98-107); Estimated GFR 57; Globulin 3.2 g/dL (2.4-3.5); Glucose 207 mg/dL (70-105); Lipase 24 U/L (8-78); Potassium 4.8 mmol/L (3.5-5.1); Protein, Total 7.3 g/dL (6.0-8.3); Sodium 139 mmol/L (136-145)
[2023-02-15 15:20] LABS: Troponin I Less than 0.010 ng/mL (< 0.028)
== END 2023-02-15 16:03 | disposition home or self-care (01) ==
LOC: ERS 09:05
DX: R07.9 Chest pain, unspecified (principal); E11.9 Type 2 diabetes mellitus without complications; I10 Essential (primary) hypertension; Z86.73 Personal history of transient ischemic attack (TIA), and cerebral infarction without residual deficits; Z87.891 Personal history of nicotine dependence; Z79.899 Other long term (current) drug therapy
CPT/HCPCS: 36415; 70450; 71045; 80053; 83690; 83880; 84484; 85025; 87635; 93005

== ENCOUNTER 2023-03-11 11:48 | Observation (INO) | payer OTHER, SELFPAY ==
[2023-03-11] MEDS ORDERED: Heparin 25,000 UNITS/D5W 500 ml bag ONE (12:15)
[2023-03-11] MEDS ORDERED: Heparin 10,000 UNITS/ 10 ML VIAL ONE ×2 (12:15→12:46)
[2023-03-11] MEDS ORDERED: Atropine Sulfate 1 mg/10 ml Syringe ONE ×2 (12:16→12:45)
[2023-03-11 12:24] LABS: #Basophils 0.1 thou/uL (0.0-0.2); #Monocytes 0.4 thou/uL (0.11-0.59); #Neutrophils 4.5 thou/uL (1.40-6.50); %Basophils 0.7 % (0.0-1.0); %Eosinophils 11.4 % (0.0-10.0); %Lymphocytes 28.8 % (21.0-51.0); %Monocytes 4.4 % (0.0-10.0); %Neutrophils 54.2 % (42.0-75.0); Hematocrit 41.1 % (42.0-52.0); Hemoglobin 14.7 g/dL (14.0-18.0); Mean Corpuscular HGB CONC 35.8 g/dL (32.0-36.0); Mean Corpuscular Volume 89.5 fl (78.0-98.0); Mean Platelet Volume 10.4 fL (7.4-10.4); Platelet Count 179 10x3/uL (130-400); RBC Distribution Width 13.2 % (11.5-14.5); Red Blood Cell (RBC) Count 4.59 mill/uL (4.70-6.10); White Blood Cell (WBC) Count 8.4 10x3/uL (4.8-10.8)
[2023-03-11] MEDS ORDERED: Verapamil 5 MG/2 ML VIAL ONE (12:46)
[2023-03-11] MEDS ORDERED: Adenosine 6 MG/2 ML VIAL ONE (12:46)
[2023-03-11] MEDS ORDERED: Nitroglycerin 50 MG/250 ML BOT 250 ML ONE (12:47)
[2023-03-11] MEDS ORDERED: Midazolam HCl 2 mg/2 ml Vial ONE (12:47)
[2023-03-11] MEDS ORDERED: fentaNYL 50 mcg/mL 1 mL Vial ONE (12:48)
[2023-03-11 12:54] LABS: Acetaminophen Less than 10 mcg/mL (10.0-30.0); Alcohol Less than 10.0 mg/dL (Less than 10); Salicylate Less than 8.0 mg/dL (15.0-30.0)
[2023-03-11 12:55] LABS: ALT (SGPT) 17 U/L (8-55); AST (SGOT) 22 U/L (5-34); Albumin 3.7 g/dL (3.5-5.0); Alkaline Phosphatase 77 U/L (40-110); Anion Gap 15 mmol/L (10-20); BUN (Urea Nitrogen) 14 mg/dL (8.4-25.7); Bilirubin, Total 0.7 mg/dL (0.2-1.2); Calc. Creatinine Clearance 0 mL/min (70-130); Calcium 9.1 mg/dL (7.8-10.44); Carbon Dioxide 21 mmol/L (22-29); Chloride 105 mmol/L (98-107); Estimated GFR 71; Globulin 2.8 g/dL (2.4-3.5); Glucose 231 mg/dL (70-105); Lipase 21 U/L (8-78); Potassium 4.2 mmol/L (3.5-5.1); Protein, Total 6.5 g/dL (6.0-8.3); Sodium 137 mmol/L (136-145)
[2023-03-11 12:57] LABS: Troponin I Less than 0.010 ng/mL (< 0.028)
[2023-03-11] MEDS ORDERED: Labetalol HCl 100 MG/20 ML VIAL SLOW IVP PRN (14:24)
[2023-03-11] MEDS ORDERED: Nitroglycerin 0.4 MG TAB (25 Tab Bottle) SL PRN (14:24)
[2023-03-11] MEDS ORDERED: Glucagon 1 MG/ML KIT IM PRN (14:25)
[2023-03-11] MEDS ORDERED: Insulin Regular 300 UNITS/3 ML VIAL SC PRN ×2 (14:25)
[2023-03-11] MEDS ORDERED: Dextrose 5% in Water 1,000 ML IV PRN (14:25)
[2023-03-11] MEDS ORDERED: Dextrose 50% Abboject 50 ML SYRINGE SLOW IVP PRN (14:25)
[2023-03-11] MEDS ORDERED: Ondansetron PF 4 MG/2 ML Vial IVP PRN (14:26)
[2023-03-11] MEDS ORDERED: Ondansetron ODT 4 MG TAB PO PRN (14:26)
[2023-03-11] MEDS ORDERED: Calcium Carbonate 500 MG ChewTAB PO PRN (14:26)
[2023-03-11] MEDS ORDERED: Senokot S 8.6-50 MG TAB PO PRN (14:26)
[2023-03-11] MEDS ORDERED: Acetaminophen 325 MG TAB PO PRN (14:26)
[2023-03-11] MEDS ORDERED: Iopamidol 370 76% 100 ML VIAL ONE (15:00)
[2023-03-11 15:06] VITALS: BMI 27.1
[2023-03-11 15:34] LABS: Troponin I 0.019 ng/mL (< 0.028)
[2023-03-11 18:22] LABS: Troponin I 0.023 ng/mL (< 0.028)
[2023-03-11] MEDS: Lisinopril 20 MG TAB PO SCH (20:28)
[2023-03-11] MEDS: Famotidine 20 MG TAB PO SCH (20:28)
[2023-03-11] MEDS ORDERED: Atorvastatin Calcium 40 MG TAB PO SCH (21:00)
[2023-03-12] MEDS ORDERED: Aspirin Chewable 81 MG TAB PO SCH (09:00)
[2023-03-12] MEDS ORDERED: Aspirin 81 mg Enteric Coated Tablet PO SCH (09:00)
[2023-03-12] MEDS: Lisinopril 20 MG TAB PO SCH (09:06)
[2023-03-12] MEDS: Famotidine 20 MG TAB PO SCH (09:07)
[2023-03-12 11:42] VITALS: BP 133/73; TEMP 98.5
== END 2023-03-12 15:15 | disposition home or self-care (01) ==
LOC: ERS 11:48 → CCL 12:37 → 2SW 12:38
PROVIDERS: ADMIT Internal Medicine Cardiovascular Disease; ATTEND Internal Medicine Cardiovascular Disease
DX: R07.2 Precordial pain (principal); R78.5 Finding of other psychotropic drug in blood; I21.3 ST elevation (STEMI) myocardial infarction of unspecified site; E78.00 Pure hypercholesterolemia, unspecified; E11.9 Type 2 diabetes mellitus without complications; I10 Essential (primary) hypertension; Z87.891 Personal history of nicotine dependence; Z90.49 Acquired absence of other specified parts of digestive tract; G45.9 Transient cerebral ischemic attack, unspecified; Z79.84 Long term (current) use of oral hypoglycemic drugs; Z79.899 Other long term (current) drug therapy; F41.9 Anxiety disorder, unspecified; Z98.890 Other specified postprocedural states; Z79.82 Long term (current) use of aspirin
CPT/HCPCS: 36415; 36416; 71045; 80053; 80307; 83690; 84484; 85025; 85347; 93005; 93458; 94760; 96374; C1769; C1887; C1894; J0153; J0461; J1644; J1815; J2250; J3010; Q9967

== ENCOUNTER 2024-05-11 18:20 | Emergency (ER) | payer OTHER, SELFPAY ==
[2024-05-11] MEDS ORDERED: Cyclobenzaprine 10 MG TAB ONE (20:06)
[2024-05-11] MEDS ORDERED: Ibuprofen 800 MG TAB ONE ×2 (20:06→20:10)
[2024-05-11] MEDS ORDERED: HYDROcodone/Acetaminophen 10/325 mg Tablet ONE (20:19)
== END 2024-05-11 20:47 | disposition home or self-care (01) ==
LOC: ERS 18:20
DX: M62.838 Other muscle spasm (principal); I25.2 Old myocardial infarction; I10 Essential (primary) hypertension; Z86.73 Personal history of transient ischemic attack (TIA), and cerebral infarction without residual deficits
CPT/HCPCS: 99282

== ENCOUNTER 2025-01-21 16:05 | Emergency (ER) | payer SELFPAY ==
[2025-01-21 16:58] LABS: #Basophils 0.03 10x3/uL (0.0-0.2); #Eosinophils 0.29 10x3/uL (0.0-0.7); #Monocytes 0.56 10x3/uL (0.11-0.59); #Neutrophils 6.58 10x3/uL (1.40-6.50); %Basophils 0.4 % (0.0-1.0); %Eosinophils 3.5 % (0.0-10.0); %Lymphocytes 9.7 % (21.0-51.0); %Monocytes 6.8 % (0.0-10.0); %Neutrophils 79.2 % (42.0-75.0); Hematocrit 43.7 % (42.0-52.0); Hemoglobin 15.0 g/dL (14.0-18.0); Mean Corpuscular Hemoglobin 31.3 pg (27.0-31.0); Mean Corpuscular Volume 91.0 fL (78.0-98.0); Platelet Count 162 10x3/uL (130-400); Red Blood Cell (RBC) Count 4.80 mill/uL (4.70-6.10); White Blood Cell (WBC) Count 8.29 10x3/uL (4.8-10.8)
[2025-01-21 17:13] LABS: ALT (SGPT) 12 U/L (Less than 45); AST (SGOT) 20 U/L (11-34); Albumin 3.6 g/dL (3.1-4.5); Alkaline Phosphatase 82 U/L (40-110); Anion Gap 13 mmol/L (10-20); BUN (Urea Nitrogen) 16 mg/dL (8.4-25.7); Bilirubin, Total 0.9 mg/dL (0.3-1.2); Calc. Creatinine Clearance 0 mL/min (70-130); Calcium 8.6 mg/dL (7.8-10.44); Carbon Dioxide 25 mmol/L (22-29); Chloride 107 mmol/L (98-107); Globulin 3.5 g/dL (2.4-3.5); Glucose 189 mg/dL (70-105); Potassium 3.9 mmol/L (3.5-5.1); Sodium 141 mmol/L (136-145)
[2025-01-21 18:23] LABS: Bacteria/HPF None Seen HPF (None Seen); CAUTI Indications for Culture Dysuria,urgency,freq; Glucose, Urine (Dipstick) >=1000 mg/dL (Negative); Leukocyte Negative Leu/uL (Negative); Protein, Urine (Dipstick) 30 mg/dL (Neg-Trace); RBC/HPF 0-3 HPF (0-3); Specific Gravity, Urine 1.020 (1.002-1.036); WBC/HPF 0-3 HPF (0-3)
[2025-01-21 18:27] LABS: Urine Culture Reflex No No
[2025-01-21] MEDS ORDERED: Ketorolac Tromethamine 30 MG (1 mL) VIAL ONE (18:38)
[2025-01-21] MEDS ORDERED: Benzonatate 100 MG CAP ONE (18:39)
== END 2025-01-21 20:42 | disposition home or self-care (01) ==
LOC: ERS 16:05
DX: R07.9 Chest pain, unspecified (principal); R51.9 Headache, unspecified; F43.9 Reaction to severe stress, unspecified; E11.9 Type 2 diabetes mellitus without complications; I10 Essential (primary) hypertension; I25.2 Old myocardial infarction; Z86.73 Personal history of transient ischemic attack (TIA), and cerebral infarction without residual deficits; Z79.84 Long term (current) use of oral hypoglycemic drugs; Z79.899 Other long term (current) drug therapy
CPT/HCPCS: 36415; 71046; 80053; 81001; 83690; 83880; 84484; 85025; 87081; 87430; 93005; 96372; J1885

== ENCOUNTER 2025-02-27 23:19 | Emergency (ER) | payer SELFPAY ==
[~2025-02-27 23:19] MED LIST: Iopamidol-370 76% 500 ML MDV (1 ML CHARGE) ONE
[2025-02-28] MEDS ORDERED: Acetaminophen 325 MG TAB ONE ×2 (00:20→00:23)
== END 2025-02-28 00:52 | disposition home or self-care (01) ==
LOC: ERS 23:19
DX: Z04.1 Encounter for examination and observation following transport accident (principal); I25.2 Old myocardial infarction; E11.9 Type 2 diabetes mellitus without complications; I10 Essential (primary) hypertension; Z86.73 Personal history of transient ischemic attack (TIA), and cerebral infarction without residual deficits; Z79.899 Other long term (current) drug therapy; Z79.84 Long term (current) use of oral hypoglycemic drugs; V49.50XA Passenger injured in collision with unspecified motor vehicles in traffic accident, initial encounter
CPT/HCPCS: 71260; 74177